=== PATIENT | male | born 1950 | race Caucasian/White ===

== ENCOUNTER 2022-06-14 08:40 | Outpatient (CLI) | payer MEDICARE, SELFPAY ==
--- NOTE | ~2022-06-14 | MR_ITS ---
EXAMINATION: MR shoulder RT wo con DATE: 06/14/2022 09:26 INDICATION: Right shoulder pain. TECHNIQUE: Magnetic resonance imaging (MRI) of the right shoulder was performed without intravenous c ontrast. Sequences included axial PD-weighted FS FSE, coronal oblique PD-weighted FS FSE and T2-weigh elfego FS FSE, and sagittal oblique T2-weighted FS FSE and T1-weighted FSE. COMPARISON: Right shoulder radiographs 05/31/2022 FINDINGS: Coracoacromial arch: The acromion undersurface is curved in morphology (type II). There is severe acromioclavicular joint osteoarthritis. There is moderate subacromial/subdeltoid bursitis. Rotator cuff: There is moderate supraspinatus and infraspinatus tendinopathy. Teres minor tendon is normal. There i s mild subscapularis tendinopathy. No tear. There is no asymmetric fatty atrophy of the rotator cuff muscle bellies. Biceps tendon and glenoid labrum: Biceps tendon is in bicipital groove. Intra-articular biceps tendon is normal. There is a tear of the anterior-inferior glenoid. Fluid: There is a small glenohumeral joint effusion. Bones/cartilage: There is cartilage surface irregularity of glenoid and humeral head. IMPRESSION: 1. Moderate rotator cuff tendinopathy. No tear. 2. Mild glenohumeral joint chondrosis. 3. Small glenohumeral joint effusion. 4. Severe acromioclavicular joint osteoarthritis. 5. Moderate subacromial/subdeltoid bursitis. Reviewed, dictated and finalized at location A.
== END 2022-06-14 08:41 | disposition home or self-care (01) ==
PROVIDERS: PCP Internal Medicine; Visit Provider Physician Assistant Surgical
DX: M25.411 Effusion, right shoulder (principal); M19.011 Primary osteoarthritis, right shoulder; M75.51 Bursitis of right shoulder
CPT/HCPCS: 73221

== ENCOUNTER 2022-09-30 11:01 | Outpatient (CLI) | payer MEDICARE, SELFPAY ==
--- NOTE | ~2022-09-30 | US_ITS ---
EXAMINATION: US venous doppler [facility] DATE: 09/30/2022 12:10 INDICATION: Left lower limb pain and swelling TECHNIQUE: Marshall scale images without and with compression and Doppler images of the left lower extrem ity veins were obtained. COMPARISON: None FINDINGS: The left common femoral vein, profunda femoral vein, femoral vein, popliteal vein, peroneal trunk, posterior tibial veins, and greater saphenous vein are patent. IMPRESSION: 1. Patent left lower extremity veins. No evidence of deep venous thrombosis. Reviewed, dictated and finalized at location L. AURANT BARTENDER
== END 2022-09-30 11:02 | disposition home or self-care (01) ==
PROVIDERS: PCP Internal Medicine; Visit Provider Nurse Practitioner
DX: M79.662 Pain in left lower leg (principal); M79.89 Other specified soft tissue disorders
CPT/HCPCS: 93971

== ENCOUNTER 2023-09-14 12:16 | Emergency (ER) | payer MEDICARE, SELFPAY ==
[2023-09-14 12:21] VITALS: BP 137/84; PULSE 83; RESP 16; TEMP 36.3; O2SAT 95
--- NOTE | 2023-09-14 12:28 | ED.URI ---
HPI - URI/Sore Throat General Chief Complaint: Upper Respiratory Infection Stated Complaint: SORE THROAT/COUGH/FEVER Source: patient and RN notes reviewed Mode of arrival: ambulatory Limitations: no limitations History of Present Illness HPI Narrative: 73 y/o male presented for c/o post nasal drainage, raw throat, cough. Temp up to 101 yesterday. Onset 3 days. Endorses known exposure to influenza. Taking theraflu for symptoms. Denies cp, palpitations, sob, wheezing, n/v/d. MD elicited complaint: cough Related Data Home Medications Medication Instructions Recorded Confirmed No Home Medications 09/14/23 09/14/23 Allergies Allergy/AdvReac Type Severity Reaction Status Date / Time No Known Allergies Allergy Verified 09/14/23 12:29 Review of Systems Review of Systems: CONSTITUTIONAL: Endorses malaise, chills, sweats, fever EYES: Denies visual changes, redness, or discharge ENT: Reports rhinorrhea, congestion, sore throat CARDIOVASCULAR: Denies chest pain, palpitations, edema RESPIRATORY: Reports cough, post nasal drainage. Denies dyspnea GASTROINTESTINAL: Denies abdominal pain, nausea, vomiting, diarrhea SKIN: Denies rash or itching MUSCULOSKELETAL: Endorses myalgia NEUROLOGIC: Endorses headache PMFSH Past Medical History Medical History Contracture, right shoulder History of stress test 3-4 years ago Seasonal allergies Surgical History Surgical History History of dental surgery 2-3 teeth removed Family History Family History Father Acute myocardial infarction Mother Arthritis Social History Social History Smoking status: Never smoker Alcohol intake: current Drinks per week: 2 Alcohol use details: wine, beer Substance use: never Lack of Transportation: No Lack of Food: Never True Current Housing: I Have Housing Concerned About Future Housing: No Difficulty Paying Gas/Electric Bills: No Difficulty Paying for Meds: No Currently Unemployed: No Education: Master's Degree or Higher Difficulty w/ Childcare or Family Care: No Living arrangements: with family Occupation/Education: retired Agree to blood products: Yes Exam Narrative: GENERAL: mildly Ill-appearing, nontoxic EYES: PERRLA, conjunctivae clear ENT: Mucous membranes moist. TMs pearly mcdonnell with dull light reflex bilaterally; no tragal tenderness. Oropharynx not erythematous without lesions or exudate, no drooling, no hoarseness, no trismus, uvula midline. No tripod positioning, muffled voice, soft palate or pharyngeal wall bulging NECK: Supple. No lymphadenopathy CHEST: Clear to auscultation, breath sounds equal. No wheezing, rhonchi, rales, or stridor. No respiratory distress, speaks in full sentences. HEART: Regular rate and rhythm. No murmur heard. SKIN: Warm, dry, no rash. NEURO: Alert and oriented x3. PSYCH: Normal mood and affect Course Course Emergency Course: Patient is aware of diagnosis, understands and agrees to treatment plan. Anticipatory guidance given. Patient agrees to follow-up as directed and is aware of reasons to seek care at the emergency department. Portions of this record may have been created with voice recognition software Level of Care: Express Care Visit Vital Signs Vital signs: Vital Signs Temperature 97.4 F L 09/14/23 12:21 Pulse Rate 83 09/14/23 12:21 Respiratory Rate 16 09/14/23 12:21 Blood Pressure 137/84 09/14/23 12:21 Pulse Oximetry 95 09/14/23 12:21 Temperature 97.4 F L 09/14/23 12:21 Pulse Rate 83 09/14/23 12:21 Respiratory Rate 16 09/14/23 12:21 Blood Pressure 137/84 09/14/23 12:21 Pulse Oximetry 95 09/14/23 12:21 Oxygen Delivery Room Air 09/14/23 12:23 reviewed MDM - MAYELIN/Marguerite Grullon
== END 2023-09-14 12:46 | disposition home or self-care (01) ==
PROVIDERS: Emergency Provider Nurse Practitioner Family; PCP Nurse Practitioner
DX: B34.9 Viral infection, unspecified (principal); Z20.822 Contact with and (suspected) exposure to COVID-19
CPT/HCPCS: 87426; 87804; 99213; C9803; G0463

== ENCOUNTER 2023-09-20 02:40 | Emergency (ER) | payer MEDICARE, SELFPAY ==
[2023-09-20] VITALS (9 sets, daily range): BP systolic 112–129; BP diastolic 63–74; PULSE 67–85; RESP 15–19; TEMP 36.6–36.8; O2SAT 93–98
--- NOTE | ~2023-09-20 | XR_ITS ---
Portable chest x-ray Comparison: None Clinical History: Syncope Findings: Lungs are clear, without focal consolidation or pleural effusion. Cardiomediastinal silho uette is unremarkable. Bones and soft tissues are unremarkable. Impression: Normal chest. Reviewed, dictated and finalized at location M. RING ASSISTANT Impression: Normal chest.
--- NOTE | 2023-09-20 02:45 | ECG_ITS ---
Measurements Intervals [place] Rate: 76 P: 3 AL: 191 QRS: -16 QRSD: 93 T: 28 QT: 363 QTc: 409 Interpretive Statements SINUS RHYTHM DELAYED PRECORDIAL R/S TRANSITION LOW QRS VOLTAGE IN PRECORDIAL LEADS INFERIOR INFARCT, AGE INDETERMINATE BASELINE ARTIFACT- V2 ABNORMAL ECG NO PREVIOUS ECG AVAILABLE FOR COMPARISON Electronically Signed On 09-20-2023 10:25:29 ORE BRIDGE OPERATOR by Orlin Najera D.O.
[2023-09-20 03:24] LABS: Basophils Percent Auto 0.2 % (0.2-1.2); Eosinophils Absolute Auto 0.1 K/mm3 (0-0.3); Eosinophils Percent Auto 0.4 % (0-4.4); Hematocrit 42.7 % (42.0-52.0); Immature Granulocyte Absolute 0.04 K/mm3 (0.00-0.031); Immature Granulocyte Percent A 0.3 % (0-0.5); Lymphocytes Absolute Auto 4.48 K/mm3 (0.9-3.2); Mean Corpuscular HGB Conc 32.8 g/dl (32-36); Mean Corpuscular Hemoglobin 31.8 pg (26-34); Mean Platelet Volume 11.2 fl (7.4-10.4); Monocytes Absolute Auto 0.5 K/mm3 (0.1-0.6); Monocytes Percent Auto 3.5 % (2.6-8.5); Neutrophils Absolute Auto 8.9 K/mm3 (1.3-6.7); Neutrophils Percent Auto 63.6 % (45.5-73.1); Platelet Count Result 194 k/mm3 (150-375); Red Cell Distribution Width 11.9 % (11.5-14.5)
[2023-09-20 03:41] LABS: Alanine Aminotransferase 21 U/L (6-50); Albumin Level 3.9 g/dL (3.5-5.1); Alkaline Phosphatase 52 U/L (38-126); Anion Gap 7 mmol/L (8-16); Aspartate Amino Transferase 24 U/L (17-59); Bilirubin,Total 0.8 mg/dL (0.2-1.3); Blood Urea Nitrogen 18 mg/dL (9-20); Calcium 8.6 mg/dL (8.4-10.2); Carbon Dioxide 28 mmol/L (22-30); Chloride 103 mmol/L (98-107); Estimated CRCL calculation 50 ml/min; Estimated Glomerular Filt Rate > 60; Glucose 121 mg/dL (65-110); Potassium 3.4 mmol/L (3.4-5.0); Sodium 138 mmol/L (137-145)
[2023-09-20 04:02] LABS: Influenza A QL RT-PCR Positive (Negative); Influenza B QL RT-PCR Negative (Negative); RSV RNA, RT-PCR Negative (Negative); SARS-CoV-2 RNA PCR Negative (Negative)
[2023-09-20] MEDS: SODIUM CHLORIDE 0.9% IV 1,000 ML 999 ML IV CONT (04:10)
--- NOTE | 2023-09-20 05:31 | ED.GENADULT ---
HPI - General Adult General Chief complaint: Syncope Stated complaint: chest pressure, syncope Time Seen by Provider: 09/20/23 03:30 History of Present Illness HPI narrative: This 73-year-old male presenting ED with chief complaint of syncope. Patient is been having cough and feeling unwell for the last 4-5 days. Today he with laying in bed for about an hour when he got up to go take some tylenol. After a to couple steps he started to feel like had a lightheaded and then slid to the floor. He said on the for minute and then felt better and was able to get up and can the hospital the checked out. At this time he is currently asymptomatic and feels well. Patient does note that he had a flu exposure from his son with holidays. Related Data Home Medications Medication Instructions Recorded Confirmed No Home Medications 09/14/23 09/14/23 Allergies Allergy/AdvReac Type Severity Reaction Status Date / Time No Known Allergies Allergy Verified 09/20/23 02:48 [facility] Past Medical History Medical History Contracture, right shoulder History of stress test 3-4 years ago Seasonal allergies Surgical History Surgical History History of dental surgery 2-3 teeth removed Family History Family History Father Acute myocardial infarction Mother Arthritis Social History Social History Smoking status: Never smoker Alcohol intake: current Drinks per week: 2 Alcohol use details: wine, beer Substance use: never Lack of Transportation: No Lack of Food: Never True Current Housing: I Have Housing Concerned About Future Housing: No Difficulty Paying Gas/Electric Bills: No Difficulty Paying for Meds: No Currently Unemployed: No Education: Master's Degree or Higher Difficulty w/ Childcare or Family Care: No Living arrangements: with family Occupation/Education: retired Agree to blood products: Yes Exam Narrative: APPEARANCE: No apparent distress. Head: atraumatic. EYES: EOMI, NOSE: Atraumatic NECK: Trachea midline RESPIRATORY: No increased rate of breathing clear to auscultation CARDIOVASCULAR: RRR, no peripheral edema ABDOMINAL: Non-distended MUSCULOSKELETAl: No obvious deformities NEURO: Alert. Moving 4/4 extremities SKIN:: Warm, dry. Normal color PSYCHIATRIC: Normal affect Course Vital Signs Vital signs: Vital Signs Temperature 98.3 F 09/20/23 02:38 Pulse Rate 78 09/20/23 02:38 Respiratory Rate 15 09/20/23 02:38 Pulse Oximetry 98 09/20/23 02:38 Oxygen Delivery Room Air 09/20/23 02:38 Temperature 98.3 F 09/20/23 02:38 Pulse Rate 70 09/20/23 06:44 Respiratory Rate 15 09/20/23 06:44 Blood Pressure 121/71 09/20/23 06:44 Pulse Oximetry 98 09/20/23 06:44 Oxygen Delivery Room Air 09/20/23 02:46 Medical Decision Making MDM Narrative Medical decision making narrative: -Course: 73-year-old male presenting with a presyncopal event. Patient's workup was positive for influenza A. Patient was fluid rehydrated and monitor for several hours with no recurrence of symptoms. Is able to ambulate without difficulty and is feeling well. We discussed Tamiflu but he is outside. Patient be discharged with return precautions. -DDX includes but is not limited to: Dehydration, orthostatic syncope, vasovagal syncope, viral illness, cardiac syncope -Hx from independent Sources: @ bedside -Independent interpretation of studies: White count 14. Metabolic panel normal. Flu A positive Independent EKG interpretation: Rhythm [sinus], Rate [76], [place] -[normal], [place] -[normal], QRS [narrow], QTC [normal], T waves -[negative for concerning inversions], ST Segments - [Negative for concerning elevations] Final interpretations: [Normal
--- NOTE | 2023-09-20 06:40 | PC.NURSE ---
Pt ambulatory to restroom w no complaints. Pt denies feeling dizzy or lightheaded.
--- NOTE | 2023-09-20 07:11 | PC.NURSE ---
Report given to SHABBIR Zaldivar at this time.
== END 2023-09-20 07:25 | disposition home or self-care (01) ==
PROVIDERS: Emergency Provider Emergency Medicine; PCP Nurse Practitioner
DX: J10.1 Influenza due to other identified influenza virus with other respiratory manifestations (principal); R55 Syncope and collapse; Z20.822 Contact with and (suspected) exposure to COVID-19
CPT/HCPCS: 36415; 71045; 80053; 85025; 87637; 93005; 96360; 99284; J7030

== ENCOUNTER 2025-01-30 00:23 | Day surgery (SDC) | payer MEDICARE, SELFPAY ==
[2025-01-17 12:10] VITALS: BMI 29.5
--- OUTSIDE RECORDS SUMMARY | 2025-01-30 00:26 | XMS_ITS | Clinical Summary ---
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 Gender Identity Not on file Sexual Orientation Not on file Plan of Treatment Health Maintenance Due Date Last Done Comments Hepatitis C 1966 DTaP, Tdap and Td Vaccines (1 - Tdap) 1967 Pneumococcal Vaccine: 50+ Years (1 of 1 - PCV) 1998 Zoster Vaccines (1 of 2) 1998 Annual Medicare Wellness Visit 2013 RSV Immunization or 60+ Years (1 - 1-dose 75+ series) 2023 COVID-19 Vaccine ( season) 2025 07/21/2024, 06/22/2023, 02/02/2023, Additional history exists Meningococcal B Vaccine Aged Out No l onger eligible based on patient's age to complete this topic Meningococcal Vaccine Aged Out No mehnaz tianna eligible based on patient's age to complete this topic RSV Immunizations Under 20 Months Aged Out No longer eligible based on patient's age to complete this topic Insurance MEDICARE Care Teams Electric Tripper Machine Operator Relationship Specialty Start Date End Date Reynold Nettles DO [address] [place] [address] PCP - General 10/08/24
[2025-01-30 10:12] VITALS: BP 114/72; PULSE 72; RESP 16; TEMP 36.2; O2SAT 100
[2025-01-30] MEDS: LACTATED RINGERS 1,000 ML 150 ML IV CONT (10:24)
--- NOTE | 2025-01-30 10:45 | P.PNAN_ITS ---
Anes - Initial Pre Proc Eval Procedure: Operation Date: 01/30/25 11:30 Proposed Procedures p Colonoscopy - Teddy Jara MD Date/Time: 01/30/25 10:45 Surgeon: Teddy Jara MD Pre Op Diagnosis: Other fecal abnormalities Patient Data Age: 74 Gender: M Height: 1.73 m Weight: 85.8 kg Last Vital Signs Temp 36.2 C L 01/30/25 10:12 Pulse 72 01/30/25 10:12 Resp 16 01/30/25 10:12 BP 114/72 01/30/25 10:12 Pulse Ox 100 01/30/25 10:12 O2 Del Method Room Air 01/30/25 10:12 Allergies Allergy/AdvReac Type Severity Reaction Status Date / Time No Known Allergies Allergy Verified 01/30/25 10:11 Home Medications ?Medication ?Instructions ?Recorded ?Confirmed ?Type aspirin 81 mg tablet,delayed 81 mg PO DAILY #90 tabs 10/10/24 01/30/25 Rx release atorvastatin 10 mg tablet (Lipitor) 10 mg PO QHS #90 tabs 10/10/24 01/30/25 Rx Patient hx anesthesia problems: none Family hx anesthesia problems: none Results Review: All pre-operative results and documents have been reviewed as part of the pre- operative evaluation. [facility] Past Medical History Medical History Contracture, right shoulder History of stress test 3-4 years ago Seasonal allergies Surgical History Surgical History History of dental surgery 2-3 teeth removed Family History Family History Father Acute myocardial infarction Mother Arthritis Social History Social History Smoking status: Never smoker Alcohol intake: never Drinks per week: 2 Alcohol use details: wine, beer Substance use: never Substance use type: does not use Lack of Transportation: No Lack of Food: Never True Current Housing: I Have Housing Concerned About Future Housing: No Difficulty Paying Gas/Electric Bills: No Difficulty Paying for Meds: No Currently Unemployed: No Education: Master's Degree or Higher Difficulty w/ Childcare or Family Care: No Living arrangements: with family Occupation/Education: retired Spiritual care concerns: No Agree to blood products: Yes Anes - Eval Final PreProcedure Day of Procedure 01/30/25 10:45 Patient weight: overweight Heart: regular rate and rhythm Lungs: clear to auscultation Airway: Mallampati scale class II Neurological: alert and oriented Last oral intake: >/= 8 hours ASA classification: II Emergent: no Anesthetic plan: proceed Anesthesia type and monitoring: general GIVS and standard monitoring Results Review: All pre-operative results and documents have been reviewed as part of the pre- operative evaluation. Informed Consent: The patient's anesthetic plan and its attendant risks and benefits were discussed with the patient/family/POA. Questions were solicited and answers provided to the satisfaction of the patient/family/POA.
--- NOTE | 2025-01-30 11:02 | PM.IMHP ---
H&P: HPI History of Present Illness Date/Time: 01/30/25 11:02 Chief Complaint: Screening colonoscopy Narrative: This is the patient's 2nd colonoscopy. There are no GI symptoms and there is no family history of colorectal cancer. Review of Systems Review of Systems: All systems reviewed & are unremarkable except as noted in HPI and below PMFSH Past Medical History Medical History Contracture, right shoulder History of stress test 3-4 years ago Seasonal allergies Surgical History Surgical History History of dental surgery 2-3 teeth removed Family History Family History Father Acute myocardial infarction Mother Arthritis Social History Social History Smoking status: Never smoker Alcohol intake: never Drinks per week: 2 Alcohol use details: wine, beer Substance use: never Substance use type: does not use Lack of Transportation: No Lack of Food: Never True Current Housing: I Have Housing Concerned About Future Housing: No Difficulty Paying Gas/Electric Bills: No Difficulty Paying for Meds: No Currently Unemployed: No Education: Master's Degree or Higher Difficulty w/ Childcare or Family Care: No Living arrangements: with family Occupation/Education: retired Spiritual care concerns: No Agree to blood products: Yes Meds Home Medications and Allergies Home Medications ?Medication ?Instructions ?Recorded ?Confirmed ?Type aspirin 81 mg tablet,delayed 81 mg PO DAILY #90 tabs 10/10/24 01/30/25 Rx release atorvastatin 10 mg tablet (Lipitor) 10 mg PO QHS #90 tabs 10/10/24 01/30/25 Rx Allergies Allergy/AdvReac Type Severity Reaction Status Date / Time No Known Allergies Allergy Verified 01/30/25 10:11 Vital Signs Vital Signs - 24 hr 01/30/25 10:12 Temperature 97.1 F L Pulse Rate 72 Respiratory Rate 16 Blood Pressure 114/72 Pulse Oximetry 100 Oxygen Delivery Room Air Exam Const: General: cooperative and healthy appearing Resp: Effort & Inspection: normal respiratory effort and able to speak in complete sentences Auscultation: clear to auscultation bilaterally Cardio: Rate: regular rate Rhythm: regular rhythm GI: Inspection: normal to inspection GI Palp: No No hepatosplenomegaly present Auscultation: normal bowel sounds Rectal Exam: deferred Skin: General skin exam: normal color Psych: Appearance: grossly normal Mental Status: mental status grossly normal Assessment and Plan Assessment and plan (1) Positive colorectal cancer screening using Cologuard test: Code(s): R19.5 - Other fecal abnormalities Status: Acute Assessment and Plan: The patient is deemed a good candidate for the procedure. Consent signed. Will proceed.
[2025-01-30 11:26] VITALS: BP 125/71; PULSE 60; RESP 16; O2SAT 99
[2025-01-30 11:36] VITALS: BP 116/72; PULSE 58; RESP 16; O2SAT 100
[2025-01-30 11:46] VITALS: BP 128/81; PULSE 62; RESP 24; O2SAT 100
== END 2025-01-30 11:53 | disposition home or self-care (01) ==
PROVIDERS: PCP Nurse Practitioner; Referring Provider Nurse Practitioner; Visit Provider Internal Medicine Gastroenterology
PROC: 0DJD8ZZ Inspection of Lower Intestinal Tract, Via Natural or Artificial Opening Endoscopic (ICD-10-PCS; CPT 45378; principal; 2025-01-30 11:30)
DX: R19.5 Other fecal abnormalities (principal); K64.8 Other hemorrhoids
CPT/HCPCS: 45378; J2704; J7120

== ENCOUNTER 2025-03-01 12:54 | Emergency (ER) | payer MEDICARE, SELFPAY ==
--- NOTE | ~2025-03-01 | XR_ITS ---
XR abdomen/kub 1V 03/01/2025 13:57 Indication: Abdomen pain. History of kidney stones. Procedure: KUB Comparison: No prior studies for comparison. Findings: There are bilateral renal stones including a staghorn calculus of the left kidney. There is a larger 3 cm calcification overlying the right sacrum of uncertain origin. Bowel gas pattern nonobs tructive. There are pelvic phleboliths. Mild lumbar spondylosis. Impression: 1: Bilateral nephrolithiasis. Large right pelvic calcification overlying the sacrum. Recommend correl ation with CT to determine origin. Reviewed, dictated and finalized at location B. Impression: 1: Bilateral nephrolithiasis. Large right pelvic calcification overlying the sa faustino. Recommend correlation with CT to determine origin.
[2025-03-01 13:19] VITALS: BP 174/81; PULSE 56; RESP 20; TEMP 36.6; O2SAT 100
--- NOTE | 2025-03-01 13:23 | ED_ITS ---
HPI - Abdominal Pain General Chief Complaint: Abdominal Pain Stated Complaint: Abdominal Pain Time Seen by Provider: 03/01/25 12:55 Source: patient Mode of arrival: ambulatory Limitations: no limitations History of Present Illness HPI narrative: Patient is a 74-year-old male that presents with bilateral testicular pain with the suprapubic pain. Also reports urinary urgency that started today. Patient has history of kidney stones and does states the pain has waxed and waned. Reports pain increased while in clinic to a 6/10. Denies any gross blood in urine, fever, chills, low back pain, nausea, vomiting, diarrhea. Denies any testicular swelling, abnormal discharge for for or trauma. Related Data Allergies Allergy/AdvReac Type Severity Reaction Status Date / Time No Known Allergies Allergy Verified 03/01/25 15:06 Review of Systems Review of Systems: All systems reviewed & are unremarkable except as noted in HPI and below Constitutional: Constitutional: Denies body ache(s), Denies chills, Denies fatigue, Denies fever(s), Denies headache(s), Denies malaise and Denies weakness Eyes: Eyes: Denies blurry vision, Denies irritation and Denies loss of vision ENT: Denies otalgia, Denies headache(s), Denies nasal discharge, Denies sinus pain and Denies sore throat Cardiovascular: Cardiovascular: Denies chest pain, Denies irregular heart rhythm and Denies dyspnea Respiratory: Respiratory: Denies dyspnea Gastrointestinal: Gastrointestinal: Denies abdominal pain, Denies melena, Denies hematochezia, Denies diarrhea, Denies nausea and Denies vomiting Genitourinary: Genitourinary: Reports flank pain, Reports testicular pain and Reports urinary frequency Musculoskeletal: Musculoskeletal: Denies back pain, Denies myalgias and Denies arthralgias Integumentary/Breasts: Skin/Breast: Denies pruritus and Denies rash Neurologic: Denies headache(s), Denies loss of vision and Denies weakness Psychiatric: Psychiatric: Reports no additional psychiatric complaints Endocrine: Endocrine: Denies fatigue PMFSH Past Medical History Medical History Contracture, right shoulder History of stress test 3-4 years ago Seasonal allergies Surgical History Surgical History History of dental surgery 2-3 teeth removed Family History Family History Father Acute myocardial infarction Mother Arthritis Social History Social History Smoking status: Never smoker Alcohol intake: never Drinks per week: 2 Alcohol use details: wine, beer Substance use: never Substance use type: does not use Lack of Transportation: No Lack of Food: Never True Current Housing: I Have Housing Concerned About Future Housing: No Difficulty Paying Gas/Electric Bills: No Difficulty Paying for Meds: No Currently Unemployed: No Education: Master's Degree or Higher Difficulty w/ Childcare or Family Care: No Living arrangements: with family Occupation/Education: retired Spiritual care concerns: No Agree to blood products: Yes Comments At time of signature, agree with nursing past medical, surgical, social and family history. There is no relevant family history pertinent to the presenting complaint. Exam Const: General: cooperative, healthy appearing, comfortable, no acute distress and well nourished Nutritional Appearance: well nourished Orientation/consciousness: patient oriented x3 Limitations: no limitations HENMT: Head: normal to inspection, normocephalic and atraumatic Ears: hearing grossly normal bilaterally and external ears normal Face/Nose/Sinus: Normal external nose present, normal facial exam and face symmetric Face and sinus: normal facial exam and face symmetric Mouth: Yes lip normal Eyes: General: appearance normal, both eyes and all related structures Alignment and Position: alignment normal and position normal Periorbital: periorbital findings normal Eyelids: eyelids normal Pupils: Equal, round and reactive pupils present EOM: EOMs intact bilaterally Neck: Neck: normal visual inspection, full ROM and supple Chest: Chest palpation & inspection: normal inspection of the chest Resp: Effort & Inspection: normal respiratory effort and able to speak in complete sentences Auscultation: clear to auscultation bilaterally Cardio: Rate: regular rate Rhythm: regular rhythm Heart sounds: S1 normal heart sound present and S2 normal heart sound present GI: Inspection: normal to inspection GI Palp: Yes Soft to palpation, No Tenderness to palpation present (GI) and No Guarding due to palpation present (GI) Skin: General skin exam: normal color and no rashes or lesions noted Neuro: General: patient oriented x3 and moves all extremities Cranial nerves: Yes Equal, round and reactive pupils present Speech: normal speech Gait exam (Neuro): Normal gait present Extrem: General: normal to inspection, full ROM and no edema Psych: Appearance: grossly normal and well kempt Mental Status: mental status grossly normal Speech and movement: Normal speech and movement present Affect: normal affect Attitude: cooperative Thought process: Normal thought process present Course Course Emergency Course: Patient being transferred to [facility] for further workup and evaluation. KUB and UA consistent with potential infected kidney stones. Also has a large mass noted with recommendation for CT Portions of this record may have been created with voice recognition software Level of Care: Express Care Visit Vital Signs Vital signs: Vital Signs Temperature 36.6 C 03/01/25 13:19 Pulse Rate 56 L 03/01/25 13:19 Respiratory Rate 20 03/01/25 13:19 Blood Pressure 174/81 H 03/01/25 13:19 Pulse Oximetry 100 03/01/25 13:19 Oxygen Delivery Room Air 03/01/25 13:19 Temperature 36.6 C 03/01/25 13:19 Pulse Rate 56 L 03/01/25 13:19 Respiratory Rate 20 03/01/25 13:19 Blood Pressure 174/81 H 03/01/25 13:19 Pulse Oximetry 100 03/01/25 13:19 Oxygen Delivery Room Air 03/01/25 13:19 Reviewed Transfer Transfered to: [place] Transportation: Other (Private auto) Transfer rationale: Patient being transferred to [facility] for further workup and evaluation. KUB and UA consistent with potential infected kidney stones. Also has a large mass noted with recommendation for CT Accepting physician: Sherif FREIRE MDM - Abdominal Pain MDM Narrative Medical decision making narrative: Patient being transferred to [facility] for further workup and evaluation. KUB and UA consistent with potential infected kidney stones. Also has a large mass noted with recommendation for CT Differential Diagnosis Differential diagnosis: Likely abdominal pain, calculus of kidney, constipation and small bowel obstruction Medical Records Attestation: I reviewed the patient's medical records. Lab Data Labs: Lab Results 03/01/25 Range/Units 13:32 POC Urine Color Evie POC Urine Clarity Cloudy POC Urine pH 5.5 POC Ur Specif [place] 1.025 POC Urine Protein 2+ (Negative) POC Ur Glucose (UA) Trace (Negative) POC Urine Ketones Negative (Negative) POC Urine Blood 3+ (Negative) POC Urine Nitrite Negative (Negative) POC Urine Bilirubin 1+ (Negative) POC Urine Urobilinogen 0.2 POC U Leukocyte Esteras 1+ (Negative) Imaging Data Radiologist's impression: ITS Impressions Abdomen X-Ray 03/01/25 14:01 Impression: 1: Bilateral nephrolithiasis. Large right pelvic calcification overlying the sacrum. Recommend correlation with CT to determine origin. Discharge Plan Discharge Clinical Impression: Calculus of kidney Patient Disposition: Acute Care Hospital Condition: Stable Patient Language: French Prescriptions: No Action atorvastatin [Lipitor] 10 mg tablet 10 mg PO QHS Qty: 90 3RF aspirin 81 mg tablet,delayed release (DR/EC) 81 mg PO DAILY Qty: 90 3RF Follow-up/Referrals: Nataly Page LABORATORY INSPECTOR [Primary Care Provider] - Time of Disposition: 15:25
[2025-03-01] MEDS: KETOROLAC 30 MG/ML VIAL (*BKC) IM (13:44)
[2025-03-01 13:53] LABS: EDUAAPPEAR Cloudy; EDUABILI 1+ (Negative); EDUABLOOD 3+ (Negative); EDUACOLOR1 Amber; EDUAGLUCOSE Trace (Negative); EDUAKETONE Negative (Negative); EDUALEUKO 1+ (Negative); EDUANITRATE Negative (Negative); EDUAPH 5.5; EDUAPROTEIN 2+ (Negative); EDUASPGRAVITY 1.025; EDUAUROBILI 0.2
== END 2025-03-01 14:24 | disposition short-term general hospital (02) ==
PROVIDERS: Emergency Provider Nurse Practitioner Family; PCP Nurse Practitioner
DX: N20.0 Calculus of kidney (principal)
CPT/HCPCS: 74018; 81003; 87086; 96372; 99213; G0463; J1885

== ENCOUNTER 2025-03-01 14:57 | Observation (INO) | payer MEDICARE, SELFPAY ==
[2025-03-01] VITALS (11 sets, daily range): BP systolic 129–151; BP diastolic 69–90; PULSE 60–72; RESP 14–24; TEMP 36–36.6; O2SAT 97–100; BMI 29.7
--- NOTE | ~2025-03-01 | XR_ITS ---
XR retrograde pyelo w/stent BI Ordering provider: Venkatesh Ramirez MD History: . RETROGRADE W/STENT . Comparison : None. FINDINGS/impression: Bilateral retrograde with stents. Bilateral hydronephrotic changes. Fluoroscopy time is 16.1 seconds. Radiation was 5.53 mGy. Reviewed, dictated and finalized at location A.
--- NOTE | ~2025-03-01 | CT_ITS ---
CT abdomen pelvis w con Ordering provider: Robinson Gorman History: 74 years Male with . Bilateral nephrolithiasis, pelvic calcification . Comparison: None. Technique: CT abdomen and pelvis with IV and without oral contrast. Automated exposure control and it erative reconstruction technique were employed. The dose-length product was 540.92 mGy-cm. 100 mL Omn ipaque 350 was given IV. Findings: VISUALIZED LOWER CHEST: Normal. UPPER ABDOMINAL ORGANS: Liver: Normal. Gallbladder: Normal. Spleen: Normal. Stomach/duodenum: Normal. Pancreas: Normal. Adrenals: Normal. Kidneys: 2 Kidney stones are seen in the right mid pole. Right hydronephrotic changes seen with a stone in the right lower ureter measuring 9 mm. Right hydrou reter is also noted. Slightly smaller left kidney with large stones are seen in the left kidney midpole measuring 1.2 and 1.2 cm. Left hydronephrotic changes with a stone in the pelviureteric junction is seen measuring 2.7 cm. No left ureteric stones. PELVIC ORGANS: The bladder is underfilled with thickened wall. Evaluation for cystitis advised. BOWEL AND MESENTERY: Colon: No evidence of diverticulitis. Normal appendix. Small Bowel: Normal. No obstruction. Peritoneum/mesentery: No free air or free fluid. No mesenteric lymphadenopathy. RETROPERITONEUM: Mild atheromatous disease of the abdominal aorta. No retroperitoneal lymphadenopat hy. MUSCULOSKELETAL: Superficial soft tissues: Bilateral fat containing inguinal hernias. Otherwise, The superficial soft tissues are normal. Bones: Age appropriate degenerative changes of the spine. Bilateral sacroiliitis. Sclerotic lesion in the right iliac bone posteriorly. Follow-up advised. IMPRESSION: 1. Bilateral kidney stones with bilateral hydronephrotic changes. 2. Stone in the right lower ureter with hydroureter. 3. 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 4. Sclerotic area in the right iliac bone. Follow-up advised. Reviewed, dictated and finalized at location A.
--- OUTSIDE RECORDS SUMMARY | 2025-03-01 15:00 | XMS_ITS | Clinical Summary ---
Author Organization [address] Address [address] [place] [id number] Care Team Providers Care Children'S Ministries Director Name Role Phone Nataly Page NP Primary Care Provider Allergies No known active allergies Medications aspirin 81 mg enteric coated tablet Take 1 tablet (81 mg total) by mouth daily Active atorvastatin (LIPITOR) 10 mg tablet Take 1 tablet (10 mg total) by mouth daily Active ofloxacin (OCUFLOX) 0.3 % ophthalmic solutionIndicat ions:Corneal abrasion, left, initial encounter instill 2 drops in left eye every 4 hours for 2 days, then 2 drops 4 times daily on days 3 through 7 5 mL 12/30/2024 Active Active Problems Problem Noted Date Diagnosed Date Coronary artery disease invo lving [place] coronary artery of [place] heart without angina pectoris 11/19/2024 Encounters Date Type Department Care Team Description 12/30/2024 9:30 AM CDT Office Visit [facility] Medical Group [facility] Care at [address] [address] Niya Smith NP Corneal abrasion, left, initial encounter (Primary Dx) from Last 3 Months Medical History Medical History Date Comments Hyperlipidemia Family History Medical History Relation Name Comments Heart attack Brother Heart attack Father Relation Name Status Comments Brother Alive Father Mother Social History Tobacco Use Types Packs/Day Years Used Date Smoking Tobacco: Never Smokeless Tobacco: Never Tobacco Cessation:Counseling Given: Not Answered Sex and Gender Information Value Date Recorded Sex Assigned at Not on file Legal Sex Male 9:53 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 Gender Identity Not on file Sexual Orientation Not on file Obstetrics History Last Filed Vital Signs Vital Sign Reading Time Taken Comments Blood Pressure 139/75 12/30/2024 9:34 AM CDT Pulse 68 12/30/2024 9:34 AM CDT Temperature 36.7 C (98 F) 12/30/2024 9:34 AM CDT Respiratory Rate 18 12/30/2024 9:34 AM CDT Oxygen Saturation 99% 12/30/2024 9:34 AM CDT Inhaled Oxygen Concentration - - Weight 87.1 kg (192 lb) 12/30/2024 9:34 AM CDT Height 172.7 cm (5' 8) 11/19/2024 9:18 AM SENIOR UNDERWRITER Body Mass Index 29.19 11/19/2024 9:18 AM SENIOR UNDERWRITER Plan of Treatment Health Maintenance Due Date Last Done Comments Depression Screening 1948 Fall Risk Assessment 1950 Hepatitis C Screening 1950 DTaP/Tdap/Td Vaccine (1 - Tdap) 1959 Hepatitis B Screening 1966 Pneumococcal vaccine 65+ (1 of 1 - PCV) 1998 Zoster Vaccine (1 of 2) 1998 Well Visit 65+ 2013 Covid-19 Vaccine (2023-2 5 season) 2025 07/21/2024, 06/22/2023, 02/02/2023, Additional history exists Influenza Vaccine Completed 07/21/2024, , 06/23/2022, Additional history exists Insurance MEDICARE [facility] Address: [facility] [id number] [place] [phone] [facility] Care Teams Children'S Ministries Director Relationship Specialty Start Date End Date Nataly Page NP [facility] [facility] [place] [address] PCP - General Nurse Practitioner 10/11/24
--- OUTSIDE RECORDS SUMMARY | 2025-03-01 15:00 | XMS_ITS | Referral Summary ---
Author Organization [address] [address] Care Team Providers Care Job Putter Up And Ticket Preparer Name Role Phone Nataly Page NP Primary Care Provider [phone] Encounters Date Type Department Care Team Description 12/30/2024 9:30 AM CDT Office Visit [facility] Medical Group [facility] at [address] [phone] Niya Smith NP Corneal abrasion, left, initial encounter (Primary Dx) from Last 3 Months Allergies No known active allergies Medications aspirin [...] Diagnosed Date Coronary artery disease invo lving [place] coronary artery of [place] heart without angina pectoris 11/19/2024 Social History Tobacco Use Types Packs/Day Years Used Date Smoking Tobacco: Never Smokeless Tobacco: Never Tobacco Cessation:Counseling Given: Not Answered Sex and Gender Information Value Date Recorded Sex Assigned at Not on file Legal Sex Male 9:53 AM TOOL TROUBLE SHOOTER Gender Identity Not on file Sexual Orientation Not on file Last Filed Vital Signs Vital Sign Reading [...] 172.7 cm (5' 8) 11/19/2024 9:18 AM TOOL TROUBLE SHOOTER Body Mass Index 29.19 11/19/2024 9:18 AM TOOL TROUBLE SHOOTER Plan of Treatment Not on file Insurance MEDICARE [facility] Address: [facility] [address] [place] [address] [facility] Care Teams Job Putter Up And Ticket Preparer Relationship Specialty Start Date End Date Nataly Page NP [address] [facility] [place] [address] PCP - General Nurse Practitioner 10/11/24
--- OUTSIDE RECORDS SUMMARY | 2025-03-01 15:00 | XMS_ITS | Continuity of Care Document ---
Author Organization [facility] Address [address] [place] [address] Phone Care Team Providers Care Dealer Relationship Manager Name Role Phone Deyanira Nolen MD Unavailable Unavailable Procedures Procedure Date CARDIOVASCULAR STRESS TEST CARDIOVASCULAR STRESS TEST Advance Directives Directive Yes / No Effective Date File Name No Information Encounters Encounter Description Practice Location Reason(s) For Visit Diagnoses Date Provider Providers Copied on Encounter [facility], [address], [place], [place], [id number], tel:[phone] [address] [place] [address] No Information Callum Mcmillan. [address], [place], [address], [place]. tel: [phone] Referring Provider: Octavio Martinez, [address], [place], [address]. tel:[phone] Family History Family Member Type Diagnosis Age At Onset No Information Payers Payer name Insurance type Covered constitution party ID Khushi ferreira(s) [place] [id number] Social History Type Description Quantity Date Captured Comments Sex Female Smoking Status No Information Chief Complaint And Reason For Visit No Information Reason For Referral Reason For Referral No Information History Of Present Illness Encounter Date Complaint History Of Prese nt Illness No Information Functional Status Date Functional Assessmen t No Information Instructions Date Instruction Additional Infor mation No Information Assessments Type Assessment Date No Information Patient Care Teams Name Effective Dates (start - stop) Status Members No Information
[2025-03-01 15:31] LABS: Basophils Percent Auto 0.2 % (0.2-1.2); Eosinophils Percent Auto 0.1 % (0-4.4); Hematocrit 41.8 % (42.0-52.0); Hemoglobin 14.2 g/dL (14.0-18.0); Immature Granulocyte Absolute 0.07 K/mm3 (0.00-0.031); Immature Granulocyte Percent A 0.4 % (0-0.5); Lymphocytes Absolute Auto 2.69 K/mm3 (0.9-3.2); Mean Corpuscular Hemoglobin 32.8 pg (26-34); Mean Corpuscular Volume 96.5 fl (80-100); Mean Platelet Volume 10.4 fl (7.4-10.4); Monocytes Absolute Auto 0.7 K/mm3 (0.1-0.6); Monocytes Percent Auto 3.8 % (2.6-8.5); Neutrophils Absolute Auto 14.5 K/mm3 (1.3-6.7); Neutrophils Percent Auto 80.5 % (45.5-73.1); Platelet Count Result 265 k/mm3 (150-375); Red Blood Count 4.33 M/mm3 (4.6-6.20); Red Cell Distribution Width 12.4 % (11.5-14.5)
[2025-03-01 15:43] LABS: Partial Thromboplastin Time 21.8 Seconds (22.3-36.8)
[2025-03-01 15:45] LABS: Lactic Acid Reflex 0.9 mmol/L (0.7-2.0)
[2025-03-01 15:46] LABS: Alanine Aminotransferase 17 U/L (6-50); Albumin Level 4.7 g/dL (3.5-5.1); Alkaline Phosphatase 61 U/L (38-126); Anion Gap 11 mmol/L (4-12); Aspartate Amino Transferase 30 U/L (17-59); Bilirubin,Total 0.5 mg/dL (0.2-1.3); Blood Urea Nitrogen 19 mg/dL (9-20); Calcium 9.4 mg/dL (8.4-10.2); Carbon Dioxide 24 mmol/L (22-30); Chloride 106 mmol/L (98-107); Estimated CRCL calculation 41 ml/min; Estimated Glomerular Filt Rate 52; Glucose 138 mg/dL (65-110); Potassium 4.3 mmol/L (3.4-5.0); Sodium 141 mmol/L (137-145); Total Protein 7.7 g/dL (6.3-8.2)
[2025-03-01 15:51] LABS: Add Urine Microscopic? YES; Appearance Urine Cloudy (Clear); Bacteria Urine None Seen /hpf; Bilirubin Urine Negative (Negative); Blood Urine 3+ (Negative); Color Urine Dark Yellow (Yellow); Glucose Urine UA 1+ mg/dL (Negative); Ketones Urine Trace mg/dL (Negative); Leukocyte Esterase Ur 2+ LEU/UL (Negative); Need Manual Microscopic Reviewed; Nitrate Urine Negative (Negative); Protein Urine 2+ mg/dL (Negative); RBC Urine >100 /hpf (0-2); Specific Grav Ur 1.019 (1.001-1.035); Squamous Epithelial Cell Urine None Seen /hpf (Few); WBC Urine 21-50 /hpf (0-3); pH Urine 5.5 (5.0-9.0)
--- OUTSIDE RECORDS SUMMARY | 2025-03-01 16:00 | XMS_ITS | Referral Summary ---
Author Organization [address] [address] Care Team Providers Care Delivery Department Supervisor Name Role Phone Nataly Page NP Primary Care Provider Encounters Date Type Department Care Team Description 12/30/2024 9:30 AM CDT Office Visit [facility] Medical Group [facility] Care at [address] [phone] Niya Smith NP Corneal abrasion, [...] Diagnosed Date Coronary artery disease invo lving [place] coronary artery of [place] heart without angina pectoris 11/19/2024 Social History Tobacco Use Types Packs/Day Years Used Date Smoking Tobacco: Never Smokeless Tobacco: Never Tobacco Cessation:Counseling Given: Not Answered Sex and Gender Information Value Date Recorded Sex Assigned at Not on file Legal Sex Male 9:53 AM FLASH DEVELOPER Gender Identity Not on file Sexual Orientation [...] 172.7 cm (5' 8) 11/19/2024 9:18 AM FLASH DEVELOPER Body Mass Index 29.19 11/19/2024 9:18 AM FLASH DEVELOPER Plan of Treatment Not on file Insurance MEDICARE [facility] Address: [facility] [address] [place] [address] [employer] Care Teams Delivery Department Supervisor Relationship Specialty Start Date End Date Nataly Page NP [address] [facility] [place] [address] PCP - General Nurse Practitioner 10/11/24
--- OUTSIDE RECORDS SUMMARY | 2025-03-01 16:00 | XMS_ITS | Clinical Summary ---
Author Organization [address] Address [address] [place] [address] Care Team Providers Care Dormitory Keeper Name Role Phone Nataly Paeg NP Primary Care Provider Allergies No known [...] Diagnosed Date Coronary artery disease invo lving [place] coronary artery of [place] heart without angina pectoris 11/19/2024 Encounters Date Type Department Care Team Description 12/30/2024 9:30 AM CDT Office Visit [facility] Medical Group [facility] Care at [address] [phone] Niya Smith NP Corneal abrasion, [...] on file Legal Sex Male 9:53 AM NETWORK SUPPORT Gender Identity Not on file Sexual Orientation [...] 172.7 cm (5' 8) 11/19/2024 9:18 AM NETWORK SUPPORT Body Mass Index 29.19 11/19/2024 9:18 AM NETWORK SUPPORT Plan of Treatment Health Maintenance Due Date [...] , 06/23/2022, Additional history exists Insurance MEDICARE [facility] Care Teams Dormitory Keeper Relationship Specialty Start Date End Date Nataly Page NP [facility] [facility] [place] [address] PCP - General Nurse Practitioner 10/11/24
--- OUTSIDE RECORDS SUMMARY | 2025-03-01 16:00 | XMS_ITS | Continuity of Care Document ---
Author Organization [facility] Address [address] [facility] [place] [address] Phone Care Team Providers Care Casino Host Name Role Phone Deyanira Nolen MD Unavailable Unavailable Procedures Procedure Date CARDIOVASCULAR STRESS TEST CARDIOVASCULAR STRESS TEST Advance Directives Directive Yes / No Effective Date File Name No Information Encounters Encounter Description Practice Location Reason(s) For Visit Diagnoses Date Provider Providers Copied on Encounter [facility], [address], [place], [place], [id number], tel:[phone] [place] [address] No Information Callum Mcmillan. [address], [place], [address], [place]. tel: [phone] Referring Provider: Octavio Martinez, [address], [place], [address]. tel:[phone] Family History Family Member Type Diagnosis Age At Onset No Information Payers Payer name Insurance type Covered constitution party ID Khushi ferreira(s) [place] [id number] Social History Type Description Quantity Date Captured [...]
--- NOTE | 2025-03-01 16:46 | ED_ITS ---
HPI - General Adult General Chief complaint: Abdominal Pain Stated complaint: kidney stone? Time Seen by Provider: 03/01/25 15:05 History of Present Illness HPI narrative: 74-year-old male presents emergency department for evaluation for suprapubic abdominal pain. Patient states earlier today he was having some intense suprapubic abdominal pain and did ultimately present to the urgent care for evaluation. Patient was treated with Toradol and states his pain was improved in response to this treatment. At time of evaluation patient states he does have some mild discomfort but denies any significant pain. Patient denies any associated flank pain with this. Patient denies any pain with urination. Patient is well-appearing at time of evaluation. Patient does have a remote history of kidney stones approximately 25 years ago. Related Data Allergies Allergy/AdvReac Type Severity Reaction Status Date / Time No Known Allergies Allergy Verified 03/01/25 15:06 Review of Systems 2 Review of Systems: All systems reviewed & are unremarkable except as noted in HPI and below PMFSH Past Medical History Medical History Contracture, right shoulder History of stress test 3-4 years ago Seasonal allergies Surgical History Surgical History History of dental surgery 2-3 teeth removed Family History Family History Father Acute myocardial infarction Mother Arthritis Social History Social History Smoking status: Never smoker Alcohol intake: never Drinks per week: 2 Alcohol use details: wine, beer Substance use: never Substance use type: does not use Lack of Transportation: No Lack of Food: Never True Current Housing: I Have Housing Concerned About Future Housing: No Difficulty Paying Gas/Electric Bills: No Difficulty Paying for Meds: No Currently Unemployed: No Education: Master's Degree or Higher Difficulty w/ Childcare or Family Care: No Living arrangements: with family Occupation/Education: retired Spiritual care concerns: No Agree to blood products: Yes Exam 2 Narrative: APPEARANCE: Well appearing, no pain, no distress, well-nourished. HEAD: normocephalic, atraumatic. EYES: PERRLA/EOMI, conjunctivae clear. NOSE: Normal no drainage EARS:TMS clear with good light reflex. THROAT: Pharynx clear, no exudate. NECK: Supple. No adenopathy, no masses. RESPIRATORY: Airway patent, respirations nonlabored. Clear to auscultation bilaterally, no rales, rhonchi, wheezing. CARDIOVASCULAR: Regular rate and rhythm without murmurs rubs or gallops. ABDOMINAL: Soft, nontender, nondistended, normal bowel sounds MUSCULOSKELETAL: Moves all extremities. Strength/ROM intact, No edema, No calf tenderness. NEURO: Alert. Cranial nerves II through XII intact. Grossly intact SKIN: Warm, dry. Normal Color Course Vital Signs Vital signs: Vital Signs Temperature 97.5 F L 03/01/25 15:02 Pulse Rate 63 03/01/25 15:02 Respiratory Rate 18 03/01/25 15:02 Blood Pressure 133/79 03/01/25 15:02 Pulse Oximetry 99 03/01/25 15:02 Oxygen Delivery Room Air 03/01/25 15:02 Temperature 97.5 F L 03/01/25 15:02 Pulse Rate 63 03/01/25 17:33 Respiratory Rate 18 03/01/25 17:33 Blood Pressure 151/85 H 03/01/25 17:33 Pulse Oximetry 100 03/01/25 17:33 Oxygen Delivery Room Air 03/01/25 15:02 Medical Decision Making [facility] Narrative Medical decision making narrative: 74-year-old male presents emergency department for evaluation for CP. Abdominal pain. Patient is afebrile but does have a leukocytosis of 18.0 and hemoglobin of 14.2. Patient has an INR of 1.0. Patient has a creatinine of 1.34 with a previous baseline of 1.1. Patient has no elevation of lactic acid. UA is cloudy, with positive leukocyte esterase 21-50 white blood cells and greater than [address] abdomen pelvis does show a 9 mm stone in the distal right ureter and a 2.7 cm stone and the UPJ on the left with bilateral hydronephrosis. Case was discussed with the urologist on-call and patient will go to the OR for stent placement. Patient was also treated IV Rocephin the emergency department. Blood cultures were ordered. The patient was updated on the plan to go to the OR for stent placement. Differential Diagnosis Differential Diagnosis: Ureteral calculi, ureteral obstruction, urinary tract infection, sepsis Vital Signs Vital Signs: Vital Signs Temperature 97.5 F L 03/01/25 15:02 Pulse Rate 63 03/01/25 15:02 Respiratory Rate 18 03/01/25 15:02 Blood Pressure 133/79 03/01/25 15:02 Pulse Oximetry 99 03/01/25 15:02 Oxygen Delivery Room Air 03/01/25 15:02 Temperature 97.5 F L 03/01/25 15:02 Pulse Rate 63 03/01/25 17:33 Respiratory Rate 18 03/01/25 17:33 Blood Pressure 151/85 H 03/01/25 17:33 Pulse Oximetry 100 03/01/25 17:33 Oxygen Delivery Room Air 03/01/25 15:02 Lab Data Lab results reviewed: Yes I reviewed the patient's lab results. 03/01/25 15:19 03/01/25 15:19 Labs: Lab Results 03/01/25 Range/Units 15:19 WBC 18.0 H (4.5-10.0) K/mm3 RBC 4.33 L (4.6-6.20) M/mm3 Hgb 14.2 (14.0-18.0) g/dL Hct 41.8 L (42.0-52.0) % MCV 96.5 (80-100) fl MCH 32.8 (26-34) pg MCHC 34.0 (32-36) g/dl RDW 12.4 (11.5-14.5) % Plt Count 265 (150-375) k/mm3 MPV 10.4 (7.4-10.4) fl Immature Gran % (Auto) 0.4 (0-0.5) % Neut % (Auto) 80.5 H (45.5-73.1) % Lymph % (Auto) 15.0 L (18.3-44.2) % Coos % (Auto) 3.8 (2.6-8.5) % Eos % (Auto) 0.1 (0-4.4) % Baso % (Auto) 0.2 (0.2-1.2) % Lymph # (Auto) 2.69 (0.9-3.2) K/mm3 Co[place] # (Auto) 0.7 H (0.1-0.6) K/mm3 Eos # (Auto) 0.0 (0-0.3) K/mm3 Baso # (Auto) 0.0 (0.0-0.1) K/mm3 Abs Immat Gran (auto) 0.07 H (0.00-0.031) K/mm3 Absolute Neuts (auto) 14.5 H (1.3-6.7) K/mm3 Absolute Nucleated RBC 0.000 (0.0-0.012) K/mm3 Nucleated RBC % 0.0 (0.0-0.2) % PT 13.0 (11.1-14.7) Seconds INR 1.0 APTT 21.8 L (22.3-36.8) Seconds Sodium 141 (137-145) mmol/L Potassium 4.3 (3.4-5.0) mmol/L Chloride 106 (98-107) mmol/L Carbon Dioxide 24 (22-30) mmol/L Anion Gap 11 (4-12) mmol/L BUN 19 (9-20) mg/dL Creatinine 1.34 H (0.7-1.3) mg/dL Estim Creat Clear Calc 41 ml/min Estimated GFR 52 L (59 - ) Glucose 138 H (65-110) mg/dL Lactic Acid 0.9 (0.7-2.0) mmol/L Calcium 9.4 (8.4-10.2) mg/dL Total Bilirubin 0.5 (0.2-1.3) mg/dL AST 30 (17-59) U/L ALT 17 (6-50) U/L Alkaline Phosphatase 61 (38-126) U/L Total Protein 7.7 (6.3-8.2) g/dL Albumin 4.7 (3.5-5.1) g/dL Urine Color Dark yellow (Yellow) Urine Appearance Cloudy H (Clear) Urine pH 5.5 (5.0-9.0) Ur Specific [place] 1.019 (1.001-1.035) Urine Protein 2+ H (Negative) mg/dL Urine Glucose (UA) 1+ H (Negative) mg/dL Urine Ketones Trace H (Negative) mg/dL Ur Blood (Man) 3+ H (Negative) Urine Nitrate Negative (Negative) Urine Bilirubin Negative (Negative) Urine Urobilinogen 1.0 (<2.0) mg/dL Add Ur Microanalysis Reviewed Leukocyte Esterase Rfl 2+ H (Negative) ZENAIDA/UL Urine RBC >100 H (0-2) /hpf Urine WBC 21-50 H (0-3) /hpf Ur Squamous Epith Cells None seen (Few) /hpf Urine Bacteria None seen /hpf Urine Casts 3-5 Imaging Data Radiologist's impression: Impressions Abdomen/Pelvis CT 03/01/25 16:14 IMPRESSION: 1. Bilateral kidney stones with bilateral hydronephrotic changes. 2. Stone in the right lower ureter with hydroureter. 3. 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 4. Sclerotic area in the right iliac bone. Follow-up advised. Discharge Plan Discharge Clinical Impression: Obstruction of left ureteropelvic junction (UPJ) due to stone, Calculus of distal right ureter, Abnormal urinalysis Patient Disposition: Still a Patient Condition: Serious
--- OUTSIDE RECORDS SUMMARY | 2025-03-01 17:32 | XMS_ITS | Referral Summary ---
Author Organization [address] [address] Care Team Providers Care Contact Center Representative Name Role Phone Nataly Page NP Primary Care Provider [phone] Encounters Date Type Department Care Team Description 12/30/2024 9:30 AM CDT Office Visit [facility] Medical [facility] Care at [address] [address] Niya Smith NP Corneal abrasion, [...] Diagnosed Date Coronary artery disease invo lving [place] coronary artery of [place] heart without angina pectoris 11/19/2024 Social History Tobacco Use Types Packs/Day Years Used Date Smoking Tobacco: Never Smokeless Tobacco: Never Tobacco Cessation:Counseling Given: Not Answered Sex and Gender Information Value Date Recorded Sex Assigned at Not on file Legal Sex Male 9:53 AM IRONER MACHINE Gender Identity Not on file Sexual Orientation [...] 172.7 cm (5' 8) 11/19/2024 9:18 AM IRONER MACHINE Body Mass Index 29.19 11/19/2024 9:18 AM IRONER MACHINE Plan of Treatment Not on file Insurance MEDICARE [facility] Address: [facility] [address] [place] [address] [facility] Care Teams Contact Center Representative Relationship Specialty Start Date End Date Nataly Page NP [phone] [facility] [place] [address] PCP - General Nurse Practitioner 10/11/24
--- OUTSIDE RECORDS SUMMARY | 2025-03-01 17:32 | XMS_ITS | Continuity of Care Document ---
Author Organization [facility] Address [address] [place] [address] Phone Care Team Providers Care Feedmobile Driver Name Role Phone Deyanira Nolen MD Unavailable Unavailable Procedures Procedure Date CARDIOVASCULAR STRESS TEST CARDIOVASCULAR STRESS TEST Advance Directives Directive Yes / No Effective Date File Name No Information Encounters Encounter Description Practice Location Reason(s) For Visit Diagnoses Date Provider Providers Copied on Encounter [facility], [address], [place], [place], [id number], [phone] [address] [place] [address] No Information Callum Mcmillan. [address], [address], [place], [address], [place]. tel: [phone] Referring Provider: Octavio Martinez, [address], [place], [address]. tel:[phone] Family History Family Member Type Diagnosis Age At Onset No Information Payers Payer name Insurance type Covered alliance party ID Khushi ferreira(s) [place] [id number] Social History Type Description Quantity Date Captured [...]
--- OUTSIDE RECORDS SUMMARY | 2025-03-01 17:32 | XMS_ITS | Clinical Summary ---
Author Organization [address] Address [address] [place] [address] Care Team Providers Care Roading Engineer Name Role Phone Nataly Page NP Primary [...] Diagnosed Date Coronary artery disease invo lving [place] coronary artery of [place] heart without angina pectoris 11/19/2024 Encounters Date Type Department Care Team Description 12/30/2024 9:30 AM CDT Office Visit [facility] Medical Group [facility] Care at [address] [address] Niya Smith NP Corneal abrasion, [...] on file Legal Sex Male 9:53 AM FRONT SERVICES AGENT Gender Identity Not on file Sexual Orientation [...] 172.7 cm (5' 8) 11/19/2024 9:18 AM FRONT SERVICES AGENT Body Mass Index 29.19 11/19/2024 9:18 AM FRONT SERVICES AGENT Plan of Treatment Health Maintenance Due Date [...] , 06/23/2022, Additional history exists Insurance MEDICARE [facility] Care Teams Roading Engineer Relationship Specialty Start Date End Date Nataly Page NP [facility] [facility] [place] [address] PCP - General Nurse Practitioner 10/11/24
--- NOTE | 2025-03-01 17:58 | P.CONUR_ITS ---
Assessment and Plan Assessment and plan (1) Calculus of kidney: Code(s): N20.0 - Calculus of kidney Status: Acute Plan 74M with hx of stones presenting with leukocystosis, UA with potential signs of infection, and CT with right distal ureteral 9mm stones with hydro, and left partial staghorn with multiple stones noted and atrophic changes of left kidney. - Plan for OR intervention with right ureteral stent placement, possible attempted left ureteral stent placement for decompression of kidneys. Discussed risks/benefits of procedures, kncluding pain/bleeding, infection, damage to surrounding structures, possibility of being unable to place stents and needing neph tubes. Patient endorse understanding. I also stated importance of returning for stent removal and that retained stent can damage kidney, and patient endorses understanding. Urology Consult Note HPI Date Seen: 03/01/25 Requesting Physician: Venkatesh Ramirez MD Primary Care Provider: Nataly Page NP Consult Narrative Narrative: Geronimo Victoria is a 74 year old male presenting today with nephrolithiasis. Patient w/ a hx of nephrolithiasis in the past. Patient was having bilateral testicular pain and suprapubic pain today, and then as this persisted he presented in the ER. Had leukocytosis with a UA with some signs of potential infection, and Cr at 1.3. A CT scan showed patient had multiple left stones, and a distal right obstructing ureteral stone of about 9mm in size. Patient states overall he is feeling ok, though still having some pain. Denies fevers/chills, denies hematuria/dysuria. [facility] Past Medical History Medical History Contracture, right shoulder History of stress test 3-4 years ago Seasonal allergies Surgical History Surgical History History of dental surgery 2-3 teeth removed Family History Family History Father Acute myocardial infarction Mother Arthritis Social History Social History Smoking status: Never smoker Alcohol intake: never Drinks per week: 2 Alcohol use details: wine, beer Substance use: never Substance use type: does not use Lack of Transportation: No Lack of Food: Never True Current Housing: I Have Housing Concerned About Future Housing: No Difficulty Paying Gas/Electric Bills: No Difficulty Paying for Meds: No Currently Unemployed: No Education: Master's Degree or Higher Difficulty w/ Childcare or Family Care: No Living arrangements: with family Occupation/Education: retired Spiritual care concerns: No Agree to blood products: Yes Meds Home Medications and Allergies Home Medications ?Medication ?Instructions ?Recorded ?Confirmed ?Type aspirin 81 mg tablet,delayed 81 mg PO DAILY #90 tabs 10/10/24 01/30/25 Rx release atorvastatin 10 mg tablet (Lipitor) 10 mg PO QHS #90 tabs 10/10/24 01/30/25 Rx Allergies Allergy/AdvReac Type Severity Reaction Status Date / Time No Known Allergies Allergy Verified 03/01/25 15:06 Vital Signs Vital Signs - 24 hr 03/01/25 15:02 03/01/25 17:33 Temperature 36.4 C L Pulse Rate 63 63 Respiratory Rate 18 18 Blood Pressure 133/79 151/85 H Pulse Oximetry 99 100 Oxygen Delivery Room Air Exam 2 Const: Other: AOx3 HENMT: Other: PERRLA Resp: Other: NOnlabored respirations GI: Other: Nondistended : Other: No CVA tenderness Neuro: Other: AOx3 Results Labs 03/01/25 15:19 03/01/25 15:19 Labs: Short CBC 03/01/25 Range/Units 15:19 WBC 18.0 H (4.5-10.0) K/mm3 Hgb 14.2 (14.0-18.0) g/dL Hct 41.8 L (42.0-52.0) % Plt Count 265 (150-375) k/mm3 BMP 03/01/25 15:19 Sodium 141 Potassium 4.3 Chloride 106 Carbon Dioxide 24 BUN 19 Creatinine 1.34 H Glucose 138 H Calcium 9.4 Liver Function 03/01/25 Range/Units 15:19 Total Bilirubin 0.5 (0.2-1.3) mg/dL AST 30 (17-59) U/L ALT 17 (6-50) U/L Alkaline Phosphatase 61 (38-126) U/L Albumin 4.7 (3.5-5.1) g/dL Urine 03/01/25 Range/Units 15:19 Urine Color Dark yellow (Yellow) Urine Appearance Cloudy H (Clear) Urine pH 5.5 (5.0-9.0) Ur Specific [place] 1.019 (1.001-1.035) Urine Protein 2+ H (Negative) mg/dL Urine Glucose (UA) 1+ H (Negative) mg/dL Imaging Radiologist's impression: CT: IMPRESSION: 1. Bilateral kidney stones with bilateral hydronephrotic changes. 2. Stone in the right lower ureter with hydroureter. 3. 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 4. Sclerotic area in the right iliac bone. Follow-up advised.
[2025-03-01] MEDS: LIDOCAINE 2% GEL UROJET 10 ML PKG MUCOUS MEM (18:14)
[2025-03-01] MEDS: LACTATED RINGERS 1,000 ML 30 ML IV CONT (18:48)
--- NOTE | 2025-03-01 18:49 | P.OP_ITS ---
Procedure Note - Detailed Date of Procedure 03/01/25 Pre-op Diagnosis Bilateral obstructing ureteral stones Post-op Diagnosis Same Procedure Performed Cystoscopy, bilateral ureteral stent placement, right ureteroscopy and laser lithotripsy, basket extraction of right ureteral stone, bilateral retrograde pyelograms, intraoperative interpretation of fluoroscopy of <60 min Surgeon Venkatesh Ramirez MD Anesthesia Other (Sedation) Indications 74M with hx of stones presenting with leukocystosis, Cr 1.3, UA with potential signs of infection, and CT with right distal ureteral 9mm stones with hydro, and left partial staghorn with multiple stones noted and atrophic changes of left kidney. - Plan for OR intervention with right ureteral stent placement, possible attempted left ureteral stent placement for decompression of kidneys. Discussed risks/benefits of procedures, kncluding pain/bleeding, infection, damage to surrounding structures, possibility of being unable to place stents and needing neph tubes. Patient endorse understanding. I also stated importance of returning for stent removal and that retained stent can damage kidney, and patient endorses understanding Description of Procedure The patient was brought back to the operating theatre. After the induction of excellent anesthesia, a surgical time out was performed, and we verified the patient identification, site, laterality, and procedure. Patient received pre- operative antibiotics within 60 minutes of start time. The patient was placed in the dorsal lithotomy position. The genital area was prepped and draped in the usual, sterile fashion. We introduced a 22 Fr rigid cystoscope easily into the bladder. The urethra was noted to be unremarkable with mild trilobar hyperplasia and trabeculations in the bladder. The bladder was emptied. The scope was re- inserted. The right ureteral orifice was identified and cannulated, and we attempted but failed to place a wire up due to the distal stone. Therefore, we obtained the semirigid ureteroscope and performed ureteroscopy, and encountered the stone in the distal ureter which was causing some impaction and irritation to the ureter. We then performed laser lithotripsy of the stone with a 200 laser fiber at 1J and 10hz until we fragmented the stone enough to place a wire up to the kidney, and confirmed this on fluoroscopy. The patient was doing well, and so we continued to fragment the stone, and then obtained a basket and removed all the fragments in their entirety, and only left behind sand-like fragments. We then shot a retrograde pyelogram which showed no filling defects though did show hydronephrosis, and passed the ureteroscope up to the mid ureter to ensure no other stone fragments were left behind. Scope then removed, and no injury to ureter was noted, only some irritation from the previously impacted stone. A 4.8 variable lengthdouble-J stent was then placed under direct vision with a curl observed in the kidney and in the bladder. We not leave a string on the stent. We then turned to the left ureter, and placed the cystoscope back into the bladder. The left ureteral orifice was identified and cannulated with 5 Fr open ended catheter. We shoot a retrograde pyelogram which showed hydronephrosis and a filling defect where the stone in the renal pelvis was on CT.. A guidewire was placed into the catheter and advanced to the renal pelvis using fluoroscopy easily and noted the wire in the upper pole. A 4.8 variable length double-J stent was then placed under direct vision with a curl observed in the kidney and in the bladder. We did not leave a string on the stent.The bladder was emptied. The patient was then awoken without event, transferred to the recovery cart and transported to the PACU in good condition. Implants B/l 4.8F variable length double J stents. Estimated Blood Loss 0 Complications None Disposition Floor (From PACU to floor; to continue antibiotics and ensure patient is doing well overnight. Ok for discharge from urology perspective tomorrow if patient is doing well; would plan to treat patient with antibiotics for at least 7 days total due to previous UA )
--- NOTE | 2025-03-01 18:50 | S_PTH ---
PATIENT: Geronimo Victoria LOC: [id number] U#:[id number] AGE/SX: 74/M ROOM: 300 RE03/01/[address]: Venkatesh Ramirez MD : 1950 BED: 01 DIS: 03/02/2025 SPEC #: [id number] RECD: 03/04/25 07:48 STATUS: ALICIA RELiu #: [id number] MARCO: 03/01/25 18:[address]: Venkatesh Ramirez DEPT: [facility] Surgical RECD BY: Roxy Rodrigues ENTERED: 03/04/25 07:49 SP TYPE: Surgical OTHR DR: Nataly Page, JM Tissues: A - Stone Procedures: Gross Exam Level 1 Crystalline Analysis
--- NOTE | 2025-03-01 19:40 | PM.IMHP ---
H&P: HPI History of Present Illness Date/Time: 03/01/25 23:00 Chief Complaint: Abdominal pain. Narrative: This is a 74-year-old male with history of kidney stones who presented to the emergency department via private vehicle with complaints of abdominal pain. He presented to urgent care earlier this afternoon for evaluation of suprapubic abdominal pain and bilateral testicular pain associated with urinary urgency which began sometime this morning. The pain sounds colicky in nature and is similar to previous episodes of kidney stones. Abdominal x-ray showed bilateral nephrolithiasis and he was referred to the ED for further workup. She denies fever, chills, sweats, chest pain, shortness of breath, vomiting, dysuria, and hematuria. No history multidrug resistant organisms. In the ED: He was afebrile on arrival with stable vital signs. Labs were significant for WBC count of 18.0, creatinine 1.34, glucose 138, lactic acid 0.9. Urinalysis was positive for 2+ protein, trace ketones, 3+ blood, 2+ leukocyte esterase, greater than 100 RBC, and 21 to 50 WBC. Abdomen/pelvis CT showed bilateral kidney stones with bilateral hydronephrotic changes, stone in the right lower ureter with hydroureter, staghorn stone in the left periureteric junction, and sclerotic area in the right iliac bone. He was taken to OR and is now status post cystoscopy with bilateral ureteral stent placement, right ureteroscopy and laser lithotripsy, basket extraction of right ureteral stone, and bilateral retrograde pyelograms. She is feeling much better and is without discomfort at the time my evaluation. Review of Systems Review of Systems: 12 systems were reviewed and are negative except for as per HPI. [facility] Past Medical History Medical History (Updated 03/02/25 @ 03:28 by Julia Lazar PA-C) [place] coronary artery calcium score less than 100 score of 56 per patient report, started on statin and aspirin Kidney stones Hyperlipidemia Prediabetes History of stress test 3-4 years ago Seasonal allergies Surgical History Surgical History (Updated 03/01/25 @ 22:29 by Julia Lazar PA-C) History of colonoscopy (01/30/25) internal hemorrhoids History of tooth extraction Family History Family History Father Acute myocardial infarction Mother Arthritis Social History Social History (Updated 03/02/25 @ 03:26 by Julia Lazar PA-C) Social History: Surrogate medical decision maker: Sammi Victoria, spouse. Code status: Full code. Smoking status: Never smoker Second hand tobacco smoke exposure: No Alcohol intake: current Drinks per week: 1 Alcohol use details: wine, beer Substance use: never Substance use type: does not use Do You Feel Safe in your Home?: Yes Lack of Transportation: No Lack of Food: Never True Current Housing: I Have Housing Concerned About Future Housing: No Difficulty Paying Gas/Electric Bills: No Difficulty Paying for Meds: No Currently Unemployed: No Education: Master's Degree or Higher Difficulty w/ Childcare or Family Care: No Living arrangements: with family Occupation/Education: retired Spiritual care concerns: No Agree to blood products: Yes Meds Home Medications and Allergies Home Medications ?Medication ?Instructions ?Recorded ?Confirmed ?Type atorvastatin 10 mg tablet (Lipitor) 10 mg PO QHS #90 tabs 10/10/24 03/01/25 Rx aspirin 81 mg tablet,delayed 81 mg PO QHS 03/01/25 03/01/25 History release Allergies Allergy/AdvReac Type Severity Reaction Status Date / Time No Known Allergies Allergy Verified 03/01/25 15:06 Vital Signs Vital Signs - 24 hr 03/01/25 15:02 03/01/25 17:33 03/01/25 18:48 Temperature 97.5 F L 97.3 F L Pulse Rate 63 63 63 Respiratory Rate 18 18 14 Blood Pressure 133/79 151/85 H 129/77 Pulse Oximetry 99 100 97 Oxygen Delivery Room Air Room Air Exam Narrative: General: Nontoxic-appearing gentleman sitting up in bed in no distress. Weight: 80.6 kg. BMI: 29.7. HEENT: PERRL, EOMI. Sclera anicteric. Oral mucosa moist. Neck: Supple. Respiratory: Lungs are clear to auscultation bilaterally. Cardiovascular: Regular rate and rhythm with S1-S2. Gastrointestinal: Abdomen is soft, nontender, and nondistended with positive bowel sounds. No CVA tenderness. Skin: Warm and dry. Extremities: No cyanosis, clubbing, or edema. Radial and pedal pulses intact. Neurological: Alert. Cranial nerves 2-12 are grossly intact. No gross focal deficits to casual conversation. Psychiatric: Pleasant and cooperative with normal mood and affect. Judgment and insight intact. H&P: Results Labs Labs: Short CBC 03/01/25 Range/Units 15:19 WBC 18.0 H (4.5-10.0) K/mm3 Hgb 14.2 (14.0-18.0) g/dL Hct 41.8 L (42.0-52.0) % Plt Count 265 (150-375) k/mm3 BMP 03/01/25 15:19 Sodium 141 Potassium 4.3 Chloride 106 Carbon Dioxide 24 BUN 19 Creatinine 1.34 H Glucose 138 H Calcium 9.4 Liver Function 03/01/25 Range/Units 15:19 Total Bilirubin 0.5 (0.2-1.3) mg/dL AST 30 (17-59) U/L ALT 17 (6-50) U/L Alkaline Phosphatase 61 (38-126) U/L Albumin 4.7 (3.5-5.1) g/dL Urine 03/01/25 Range/Units 15:19 Urine Color Dark yellow (Yellow) Urine Appearance Cloudy H (Clear) Urine pH 5.5 (5.0-9.0) Ur Specific [place] 1.019 (1.001-1.035) Urine Protein 2+ H (Negative) mg/dL Urine Glucose (UA) 1+ H (Negative) mg/dL Impressions Abdomen/Pelvis CT 03/01/25 16:14 IMPRESSION: 1. Bilateral kidney stones with bilateral hydronephrotic changes. 2. Stone in the right lower ureter with hydroureter. 3. 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 4. Sclerotic area in the right iliac bone. Follow-up advised. Assessment and Plan Assessment and plan (1) Hydronephrosis with renal and ureteral calculus obstruction: Code(s): N13.2 - Hydronephrosis with renal and ureteral calculous obstruction Status: Acute (2) Staghorn renal calculus: Code(s): N20.0 - Calculus of kidney Status: Acute (3) Acute kidney injury: Code(s): N17.9 - Acute kidney failure, unspecified Status: Acute (4) Elevated blood pressure reading: Code(s): R03.0 - Elevated blood-pressure reading, without diagnosis of hypertension Status: Acute (5) Bone lesion: Code(s): M89.9 - Disorder of bone, unspecified Status: Acute Plan The patient presented to the emergency department from urgent care for further evaluation of kidney stones noted on abdominal x-ray after he presented with colicky abdominal and groin pain as detailed in HPI. Labs, imaging, EKG, and all reports were personally reviewed. CT scan showed bilateral kidney stones with hydronephrotic changes, staghorn stone in the left pelvic ureteral junction, and a stone in the right lower ureter with hydroureter. He was taken to the OR and underwent cystoscopy with bilateral stent placement, right ureteroscopy with laser lithotripsy, basket extraction of right ureteral stone and bilateral retrograde pyelograms. Analgesics and antiemetics are available as needed. He technically has an acute kidney injury, likely related to the obstructing stones, and I suspect this will improve by morning. Continue IV fluids overnight. He is on ceftriaxone pending urine culture. A few blood pressure readings were high possibly due to related to pain, and they will be monitored closely overnight to see how he trends. A sclerotic area was noted in the right iliac bone on CT scan this will need to be followed up as an outpatient. His home medications will be reviewed and resumed as appropriate. Findings and treatment plan were discussed with the patient. Questions were solicited and answered to satisfaction. The patient's medical management will be taken over by the hospitalist team in a.m. Quality VTE Prophylaxis VTE prophylaxis: mechanical ordered If No VTE Prophylaxis Answer both mechanical and pharmacologic: Reason no pharmacologic proph: medical contraindication (to OR today) The patient has been admitted under observation status. Hospitalist [facility] Advance Care Plan I have confirmed that the patient's Advanced Care Plan is present, code status is documented, or surrogate decision maker is listed in patient medical record.: Yes Medication Reconciliation I have utilized all available resources to obtain, update and review the patients current medications (includes all prescriptions, OTC, herbals, cannabis, and nutritional supplements).: Yes
--- NOTE | 2025-03-01 20:05 | ADMGEN ---
This patient, Geronimo Victoria, was admitted to [facility] Surg Room 300-01. Patient/family oriented to hospital policies and general routines including ID bracelet, bed and alarms, visiting hours, pain management, procedures, bathroom and other care routines, personal items, smoking policy, room service/diet, and visiting hours. Information on how to activate the Rapid Response Team has been discussed. Patient/Family are encouraged to report perceived risks to care and to ask questions if they do not understand what they are told or what they should do.
[2025-03-01] MEDS: ASPIRIN 81 MG ENTERIC TABLET PO (23:01)
[2025-03-01] MEDS: SODIUM CHLORIDE 0.9% IV 1,000 ML 100 ML IV CONT (23:01)
[2025-03-01] MEDS: ATORVASTATIN 10 MG TABLET PO (23:01)
[2025-03-02 00:32] VITALS: BP 151/70; PULSE 76; RESP 16; TEMP 36.8; O2SAT 99
[2025-03-02 04:21] VITALS: BP 127/58; PULSE 70; RESP 16; TEMP 36.4; O2SAT 96
[2025-03-02 06:23] LABS: Hematocrit 36.1 % (42.0-52.0); Hemoglobin 12.1 g/dL (14.0-18.0); Mean Corpuscular HGB Conc 33.5 g/dl (32-36); Mean Corpuscular Volume 95.5 fl (80-100); Mean Platelet Volume 10.8 fl (7.4-10.4); Platelet Count Result 219 k/mm3 (150-375); Red Blood Count 3.78 M/mm3 (4.6-6.20); Red Cell Distribution Width 12.5 % (11.5-14.5); White Blood Count 11.9 K/mm3 (4.5-10.0)
[2025-03-02 06:33] LABS: Anion Gap 5 mmol/L (4-12); Blood Urea Nitrogen 20 mg/dL (9-20); Calcium 8.5 mg/dL (8.4-10.2); Carbon Dioxide 24 mmol/L (22-30); Chloride 110 mmol/L (98-107); Estimated CRCL calculation 42 ml/min; Estimated Glomerular Filt Rate 53; Glucose 133 mg/dL (65-110); Potassium 4.1 mmol/L (3.4-5.0); Sodium 139 mmol/L (137-145)
--- NOTE | 2025-03-02 14:14 | WPDUROPN2 ---
Progress Note: A&P Assessment and Plan (1) Hydronephrosis with renal and ureteral calculus obstruction: Code(s): N13.2 - Hydronephrosis with renal and ureteral calculous obstruction Status: Acute Assessment and Plan: Patient status post cystoscopy, right ureteroscopy and laser lithotripsy and basket extraction of stone, and bilateral ureteral stent placement. She is doing well overall. His white blood cell count is down to 11, and his creatinine is stable 1.3. He is afebrile and he is feeling well overall. He has been on ceftriaxone. -patient feels strongly that he would like to go home. I feel this is reasonable as he is voiding well, his white blood cell count is down, he is having minimal discomfort, and he is hemodynamically stable. His cultures are still pending, but due to the improvement on ceftriaxone I feel it is reasonable to discharge him on oral aversion a 3rd generation cephalosporin like cefdinir. I will have him discharged with Flomax and cefdinir today. -plan will be for the patient to return to have this right stent removed, and he will require a procedure to treat the left-sided stones as they are larger, and this may be either PCNL versus staged ureteroscopy. Patient endorses understanding that it is imperative to ensure follow-up and not allow for a retained stent. (2) Staghorn renal calculus: Code(s): N20.0 - Calculus of kidney Status: Acute (3) Calculus of distal right ureter: Code(s): N20.1 - Calculus of ureter Status: Acute Subjective Subjective Date/Time Seen: 03/02/25 14:14 Interval history: NAEO. Patient feeling well. VOiding appropriate, minimal discomfort. WBC down to 11, Cr is stable at 1.3. Patient would like ot go home. Afebrile, hemodynamically stable. Exam Const: General: comfortable and no acute distress GI: Other: Nondistended : Other: No CVA tenderness Objective Data Vital Signs Vital Signs: Vital Signs - 24 hr 03/01/25 15:02 03/01/25 17:33 03/01/25 18:48 Temperature 36.4 C L 36.3 C L Pulse Rate 63 63 63 Respiratory Rate 18 18 14 Blood Pressure 133/79 151/85 H 129/77 Pulse Oximetry 99 100 97 Oxygen Delivery Room Air Room Air 03/01/25 19:00 03/01/25 19:15 03/01/25 19:30 Temperature Pulse Rate 60 62 61 Respiratory Rate 16 16 16 Blood Pressure 129/69 135/76 139/90 Pulse Oximetry 98 99 99 Oxygen Delivery Room Air Room Air Room Air 03/01/25 19:45 03/01/25 20:15 03/01/25 20:54 Temperature 36.0 C L 36.1 C L Pulse Rate 61 65 63 Respiratory Rate 15 24 H 16 Blood Pressure 140/87 130/70 147/77 H Pulse Oximetry 100 100 100 Oxygen Delivery Room Air 03/01/25 21:46 03/01/25 22:17 03/02/25 00:32 Temperature 36.6 C 36.8 C Pulse Rate 72 63 76 Respiratory Rate 16 16 16 Blood Pressure 129/85 151/70 H Pulse Oximetry 98 100 99 Oxygen Delivery Room Air 03/02/25 04:21 Temperature 36.4 C L Pulse Rate 70 Respiratory Rate 16 Blood Pressure 127/58 L Pulse Oximetry 96 Oxygen Delivery Intake/Output Intake/Output: Intake & Output 02/27/25 02/28/25 03/01/25 03/02/25 23:59 23:59 23:59 23:59 Intake Total 250 890 Output Total 10 Balance 240 890 Meds/Results Medications: Active Medications Generic Name Dose Route Start Last Admin Trade Name Freq PRN Reason Stop Dose Admin Acetaminophen 650 mg 03/01/25 19:42 Acetaminophen 325 Mg Tablet PO Q6H PRN Mild Pain (1-3) or Fever Hydrocodone Bitart/Acetaminophen 1 tab 03/01/25 19:42 Hydrocodone/Acetaminophen (*Crx) 5-325 Mg Tablet PO Q6H PRN Pain Rated 4-6 Aspirin 81 mg 03/01/25 22:35 03/01/25 23:01 Aspirin 81 Mg Enteric Tablet PO 81 mg QHS SEAN Administration Atorvastatin Calcium 10 mg 03/01/25 22:35 03/01/25 23:01 Atorvastatin 10 Mg Tablet PO 10 mg QHS SEAN Administration Ceftriaxone Sodium 1 gm in 50 mls @ 100 mls/hr 03/02/25 17:00 Rocephin 1 Gm/Ns 50 Ml IVPB Q24H SEAN Sodium Chloride 1,000 mls @ 100 mls/hr 03/01/25 22:35 03/01/25 23:01 Normal Saline Iv IV CONT 100 mls/hr .Q10H SEAN Administration Morphine Sulfate 2 mg 03/01/25 19:42 Morphine Sulfate (*Crx) 2 Mg/Ml Inj IV PUSH Q4H PRN Pain Rated 7-10 Radiology Results: ITS Impressions Abdomen/Pelvis CT 03/01/25 16:14 IMPRESSION: 1. Bilateral kidney stones with bilateral hydronephrotic changes. 2. Stone in the right lower ureter with hydroureter. 3. 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 4. Sclerotic area in the right iliac bone. Follow-up advised. Labs Labs: Laboratory Results - last 24 hr 03/01/25 03/02/25 15:19 05:59 WBC 18.0 H 11.9 H RBC 4.33 L 3.78 L Hgb 14.2 12.1 L Hct 41.8 L 36.1 L MCV 96.5 95.5 MCH 32.8 32.0 MCHC 34.0 33.5 RDW 12.4 12.5 Plt Count 265 219 MPV 10.4 10.8 H Immature Gran % (Auto) 0.4 Neut % (Auto) 80.5 H Lymph % (Auto) 15.0 L [place] % (Auto) 3.8 Eos % (Auto) 0.1 Baso % (Auto) 0.2 Lymph # (Auto) 2.69 [place] # (Auto) 0.7 H Eos # (Auto) 0.0 Baso # (Auto) 0.0 Abs Immat Gran (auto) 0.07 H Absolute Neuts (auto) 14.5 H Absolute Nucleated RBC 0.000 Nucleated RBC % 0.0 PT 13.0 INR 1.0 APTT 21.8 L Sodium 141 139 Potassium 4.3 4.1 Chloride 106 110 H Carbon Dioxide 24 24 Anion Gap 11 5 BUN 19 20 Creatinine 1.34 H 1.31 H Estim Creat Clear Calc 41 42 Estimated GFR 52 L 53 L Glucose 138 H 133 H Lactic Acid 0.9 Calcium 9.4 8.5 Magnesium 2.0 Total Bilirubin 0.5 AST 30 ALT 17 Alkaline Phosphatase 61 Total Protein 7.7 Albumin 4.7 Urine Color Dark yellow Urine Appearance Cloudy H Urine pH 5.5 Ur Specific [place] 1.019 Urine Protein 2+ H Urine Glucose (UA) 1+ H Urine Ketones Trace H Ur Blood (Man) 3+ H Urine Nitrate Negative Urine Bilirubin Negative Urine Urobilinogen 1.0 Add Ur Microanalysis Reviewed Leukocyte Esterase Rfl 2+ H Urine RBC >100 H Urine WBC 21-50 H Ur Squamous Epith Cells None seen Urine Bacteria None seen Urine Casts 3-5
--- NOTE | 2025-03-02 14:22 | PM.DS ---
DS: Admitting Diagnosis Discharge Date 03/02/2025 Admitting Diagnosis Bilateral obstructing ureteral stones DS: Discharge Diagnosis Discharge Diagnosis (1) Hydronephrosis with renal and ureteral calculus obstruction: Code(s): N13.2 - Hydronephrosis with renal and ureteral calculous obstruction Status: Acute (2) Calculus of distal right ureter: Code(s): N20.1 - Calculus of ureter Status: Acute Assessment and Plan: Patient status post cystoscopy, right ureteroscopy and laser lithotripsy and basket extraction of stone, and bilateral ureteral stent placement. She is doing well overall. His white blood cell count is down to 11, and his creatinine is stable 1.3. He is afebrile and he is feeling well overall. He has been on ceftriaxone. -patient feels strongly that he would like to go home. I feel this is reasonable as he is voiding well, his white blood cell count is down, he is having minimal discomfort, and he is hemodynamically stable. His cultures are still pending, but due to the improvement on ceftriaxone I feel it is reasonable to discharge him on oral aversion a 3rd generation cephalosporin like cefdinir for 14 days. I will have him discharged with Flomax and cefdinir today. -plan will be for the patient to return to have this right stent removed, and he will require a procedure to treat the left-sided stones as they are larger, and this may be either PCNL versus staged ureteroscopy. Patient endorses understanding that it is imperative to ensure follow-up and not allow for a retained stent. (3) Staghorn renal calculus: Code(s): N20.0 - Calculus of kidney Status: Acute Plan Patient status post cystoscopy, right ureteroscopy and laser lithotripsy and basket extraction of stone, and bilateral ureteral stent placement. She is doing well overall. His white blood cell count is down to 11, and his creatinine is stable 1.3. He is afebrile and he is feeling well overall. He has been on ceftriaxone. -patient feels strongly that he would like to go home. I feel this is reasonable as he is voiding well, his white blood cell count is down, he is having minimal discomfort, and he is hemodynamically stable. His cultures are still pending, but due to the improvement on ceftriaxone I feel it is reasonable to discharge him on oral aversion a 3rd generation cephalosporin like cefdinir for 14 days. I will have him discharged with Flomax and cefdinir today. -plan will be for the patient to return to have this right stent removed, and he will require a procedure to treat the left-sided stones as they are larger, and this may be either PCNL versus staged ureteroscopy. Patient endorses understanding that it is imperative to ensure follow-up and not allow for a retained stent. DS: Summary Hospital Course Hospital Course: Patient presented to the emergency room with some suprapubic discomfort and found to have signs of urinary tract infection as well as bilateral obstructing ureteral stones, with right-sided 9 mm distal stone, and left-sided UPJ 2.7 cm stone, as well as other larger stones throughout the kidney. White blood cell count was 18, and creatinine is 1.3, the patient was hemodynamically stable. Went to the operating room and perform cystoscopy, right ureteroscopy and laser lithotripsy and basket extraction of stone, and bilateral ureteral stent placement. Patient tolerated this well. This was performed on 03/01/2025. The next day the patient was doing well. He was voiding appropriately. His pain was well controlled. His white blood cell count trended down to 11.9. His creatinine was stable 1.3. He was continued on ceftriaxone. The patient felt very strongly he wants to discharge home. Time Spent with Patient Time attestation: Total time spent providing and/or coordinating discharge services: Exam Const: General: comfortable and no acute distress : Other: No CVA tenderness DS: Data Data Completed and Pending Pending studies at discharge: Pending at discharge 03/01/25 18:50 Surgical [PTH] Routine Labs on day of discharge: Labs from last 24 hours 03/02/25 03/01/25 05:59 15:19 WBC 11.9 H 18.0 H RBC 3.78 L 4.33 L Hgb 12.1 L 14.2 Hct 36.1 L 41.8 L MCV 95.5 96.5 MCH 32.0 32.8 MCHC 33.5 34.0 RDW 12.5 12.4 Plt Count 219 265 MPV 10.8 H 10.4 Immature Gran % (Auto) 0.4 Neut % (Auto) 80.5 H Lymph % (Auto) 15.0 L [place] % (Auto) 3.8 Eos % (Auto) 0.1 Baso % (Auto) 0.2 Lymph # (Auto) 2.69 [place] # (Auto) 0.7 H Eos # (Auto) 0.0 Baso # (Auto) 0.0 Abs Immat Gran (auto) 0.07 H Absolute Neuts (auto) 14.5 H Absolute Nucleated RBC 0.000 Nucleated RBC % 0.0 PT 13.0 INR 1.0 APTT 21.8 L Sodium 139 141 Potassium 4.1 4.3 Chloride 110 H 106 Carbon Dioxide 24 24 Anion Gap 5 11 BUN 20 19 Creatinine 1.31 H 1.34 H Estim Creat Clear Calc 42 41 Estimated GFR 53 L 52 L Glucose 133 H 138 H Lactic Acid 0.9 Calcium 8.5 9.4 Magnesium 2.0 Total Bilirubin 0.5 AST 30 ALT 17 Alkaline Phosphatase 61 Total Protein 7.7 Albumin 4.7 Urine Color Dark yellow Urine Appearance Cloudy H Urine pH 5.5 Ur Specific [place] 1.019 Urine Protein 2+ H Urine Glucose (UA) 1+ H Urine Ketones Trace H Ur Blood (Man) 3+ H Urine Nitrate Negative Urine Bilirubin Negative Urine Urobilinogen 1.0 Add Ur Microanalysis Reviewed Leukocyte Esterase Rfl 2+ H Urine RBC >100 H Urine WBC 21-50 H Ur Squamous Epith Cells None seen Urine Bacteria None seen Urine Casts 3-5 Preliminary micro results at discharge 03/01/25 17:38 Blood Culture - Preliminary Blood Procedures/Treatments: Cystoscopy, right ureteroscopy and laser lithotripsy and basket extraction of stone, bilateral ureteral stent placement, bilateral retrograde pyelograms Discharge Plan Discharge Consulting providers: Venkatesh Ramirez Discharging Clinician: Venkatesh Ramirez Patient Disposition: Home Activity: as tolerated Diet: as tolerated Discharge Instructions: You will have some blood in your urine, and some burning with urination. Stay as hydrated as you can. You have stents in place in both kidneys - the plan will be to remove the right sided stent in the next week or two; however, the left stent will stay in place and you will need a procedure to take care of the large stones in the left kidney. If you have fevers/chills, severe clots, inability to urinate - please call or go to the emergency room. [facility] clinic will call you to schedule your follow up appointment in the near future. Patient Language: Greenlandic Stand Alone Forms: General Discharge Instructions Follow-up/Referrals: Jon Dempsey MD [Physician] - 03/12/25 Discharge Medications: New tamsulosin [Flomax] 0.4 mg capsule 0.4 mg PO DAILY Qty: 30 0RF cefdinir 300 mg capsule 300 mg PO Q12H Qty: 28 0RF Continued aspirin 81 mg tablet,delayed release (DR/EC) 81 mg PO QHS atorvastatin [Lipitor] 10 mg tablet 10 mg PO QHS Qty: 90 3RF Date of admission: 03/01/25 20:05 Primary Care Provider: Nataly Page Admitting Provider: Venkatesh Ramirez Attending physician on admission: Venkatesh Ramirez Condition: Serious
--- OUTSIDE RECORDS SUMMARY | 2025-03-04 08:05 | XMS_ITS | Clinical Summary ---
Author Organization [address] Address [address] [place] [address] Care Team Providers Care Protection Specialist Name Role Phone Nataly Page NP Primary [...] Diagnosed Date Coronary artery disease invo lving [place] coronary artery of [place] heart without angina pectoris 11/19/2024 Encounters Date Type Department Care Team Description 12/30/2024 9:30 AM CDT Office Visit [facility] Medical Group [facility] Care at [address] [address] Niya Smith NP Corneal abrasion, [...] on file Legal Sex Male 9:53 AM 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 Address: [facility] [id number] [id number] [facility] Care Teams Protection Specialist Relationship Specialty Start Date End Date Nataly Page NP [facility] [facility] [place] [address] PCP - General Nurse Practitioner 10/11/24
--- OUTSIDE RECORDS SUMMARY | 2025-03-04 08:06 | XMS_ITS | Referral Summary ---
Author Organization [address] [address] Care Team Providers Care Field Marketing Representative Name Role Phone Nataly Page NP Primary Care Provider Encounters Date Type Department Care Team Description 12/30/2024 9:30 AM CDT Office Visit [facility] Medical Group [facility] Care at [address] [address] Niya Smith NP Corneal abrasion, [...] Diagnosed Date Coronary artery disease invo lving [place] coronary artery of [place] heart without angina pectoris 11/19/2024 Social History Tobacco Use Types Packs/Day Years Used Date Smoking Tobacco: Never Smokeless Tobacco: Never Tobacco Cessation:Counseling Given: Not Answered Sex and Gender Information Value Date Recorded Sex Assigned at Not on file Legal Sex Male 9:53 AM 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 [place] [address] PCP - General Nurse Practitioner 10/11/24
--- OUTSIDE RECORDS SUMMARY | 2025-03-04 08:06 | XMS_ITS | Continuity of Care Document ---
Author Organization [facility] Address [address] [facility] [address] [place] [address] Phone Care Team Providers Care Head Sampler Name Role Phone Deyanira Nolen MD Unavailable Unavailable Procedures Procedure Date CARDIOVASCULAR STRESS TEST CARDIOVASCULAR STRESS TEST Advance Directives Directive Yes / No Effective Date File Name No Information Encounters Encounter Description Practice Location Reason(s) For Visit Diagnoses Date Provider Providers Copied on Encounter [facility], [address], [place], [place], [id number], tel:[phone] [address] [place] [address] No Information Callum Mcmillan. [address], [address], [place], [address], [place]. tel: [phone] Referring Provider: Octavio Martinez, [address], [place], [address]. tel:[phone] Family History Family Member Type Diagnosis Age At Onset No Information Payers Payer name Insurance type Covered constitution party ID Khushi ferreira(s) [place] [id number] Social History Type Description Quantity Date Captured [...]
== END 2025-03-02 14:35 | disposition home or self-care (01) ==
LOC: ANHED 15:58 → ANHSURGERY 17:30 → ANH3MEDSUR 20:12
PROVIDERS: Physician Assistant; Admitting Provider Internal Medicine; Emergency Provider Emergency Medicine; PCP Nurse Practitioner; Visit Provider Urology
PROC: (CPT 52352; principal; 2025-03-01 17:45)
DX: N13.2 Hydronephrosis with renal and ureteral calculous obstruction (principal); N17.9 Acute kidney failure, unspecified; R03.0 Elevated blood-pressure reading, without diagnosis of hypertension; M89.9 Disorder of bone, unspecified; Z79.82 Long term (current) use of aspirin; Z79.899 Other long term (current) drug therapy
CPT/HCPCS: 52356; 52332; 36415; 74177; 74420; 80048; 80053; 81001; 82365; 83605; 83735; 85025; 85027; 85610; 85730; 87040; 87086; 88300; 96361; 96365; 99285; A9270; C1758; C2617; G0378; J0696; J2003; J2704; J3010; J7030; J7120; Q9966; Q9967

== ENCOUNTER 2025-03-13 12:59 | Outpatient (CLI) | payer MEDICARE, SELFPAY ==
--- NOTE | ~2025-03-13 | XR_ITS ---
XR abdomen/kub 1V Ordering provider: Mac Jordan MD History: . calcium kidney stone . Comparison: None. FINDINGS: BOWEL: Nonobstructive bowel gas pattern. ORGANOMEGALY: None. SIGNIFICANT PATHOLOGIC CALCIFICATIONS: Multiple stones in the left kidney with staghorn stones. Bilat eral double-J stent. This stone seen in the right kidney is most likely unchanged although not very c lear. OTHER: No free air is seen under the diaphragm. Calcified lymph node is projected over the right sacral alar unchanged. IMPRESSION: NO ACUTE ABDOMINAL FINDINGS. Bilateral double-J stent. Multiple left kidney stones. Reviewed, dictated and finalized at location A.
== END 2025-03-13 13:00 | disposition home or self-care (01) ==
PROVIDERS: PCP Nurse Practitioner; Visit Provider Urology
DX: N20.0 Calculus of kidney (principal)
CPT/HCPCS: 74018

== ENCOUNTER 2025-04-10 10:26 | Outpatient (CLI) | payer MEDICARE, SELFPAY ==
--- NOTE | 2025-04-10 10:37 | ECG_ITS ---
Test Date: 2025-04-10 10:50:00 Measurements Intervals [place] Rate: 62 P: 11 MN: 190 QRS: 1 QRSD: 100 T: 31 QT: 387 QTc: 394 Interpretive Statements SINUS RHYTHM LOW QRS VOLTAGE IN PRECORDIAL LEADS [QRS DEFLECTION < 1.0 mV IN CHEST LEADS] ABNORMAL ECG No previous ECG available for comparison Electronically Signed On 04-10-2025 14:06:09 CDT by Carlos Dotson M.D.
--- OUTSIDE RECORDS SUMMARY | 2025-04-10 10:40 | XMS_ITS | Continuity of Care Document ---
Author Organization [facility] Address [address] [facility] [address] [place] [address] Phone Care Team Providers Care Rn Interventional Name Role Phone Deyanira Nolen MD Unavailable Unavailable Procedures Procedure Date CARDIOVASCULAR STRESS TEST CARDIOVASCULAR STRESS TEST Advance Directives Directive Yes / No Effective Date File Name No Information Encounters Encounter Description Practice Location Reason(s) For Visit Diagnoses Date Provider Providers Copied on Encounter [facility], [address], [place], [place], [id number], tel:[phone] [address] [place] [address] No Information Callum Mcmillan. [address], [place], [address], [place]. tel: [phone] Referring Provider: Octavio Martinez, [address], [place], [address]. tel:[phone] Family History Family Member Type Diagnosis Age At Onset No Information Payers Payer name Insurance type Covered green party ID Khushi ferreira(s) [place] [id number] Social History Type Description Quantity Date Captured [...]
--- OUTSIDE RECORDS SUMMARY | 2025-04-10 10:40 | XMS_ITS | Clinical Summary ---
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 SIGNAL OPERATOR Gender Identity Not on file Sexual Orientation [...] 172.7 cm (5' 8) 11/19/2024 9:18 AM ALARM SIGNAL OPERATOR Body Mass Index 29.19 11/19/2024 9:18 AM ALARM SIGNAL OPERATOR Plan of Treatment Health Maintenance Due Date Last Done Comments Depression Screening 1948 Fall Risk Assessment 1948 Hepatitis C Screening 1948 DTaP/Tdap/Td Vaccine (1 - Tdap) 1959 Hepatitis B Screening 1966 Pneumococcal vaccine 65+ (1 of 1 - PCV) 1998 Zoster Vaccine (1 of 2) 1998 Well Visit 65+ 2013 Covid-19 Vaccine (2023- 5 season) 2025 07/21/2024, 06/22/2023, 02/02/2023, Additional history exists Influenza Vaccine Completed 07/21/2024, , 06/23/2022, Additional history exists Insurance MEDICARE [facility] Care Teams Piercing Mill Operator Relationship Specialty Start Date End Date Nataly Page NP [facility] [place], [place] [id number] PCP - General Nurse Practitioner 10/11/24
--- OUTSIDE RECORDS SUMMARY | 2025-04-10 10:40 | XMS_ITS | Clinical Summary ---
Author Organization [facility] Address [address] [place] [address] Care Team Providers Care Excavator Backhoe Operator Name Role Phone RiaReynold nichols DO Primary Care Provider [phone] Social History Tobacco Use Types Packs/Day Years Used Date Smoking Tobacco: Never Assessed Sex and Gender Information Value Date Recorded Sex Assigned at Male 10/04/2024 2:56 PM MANAGER FLOOR Legal Sex Male 12:24 PM MANAGER FLOOR Gender Identity Not on file Sexual Orientation [...] complete this topic Insurance MEDICARE Care Teams Excavator Backhoe Operator Relationship Specialty Start Date End Date Reynold Nettles DO [address] [place] [address] PCP - General 10/08/24
--- OUTSIDE RECORDS SUMMARY | 2025-04-10 10:40 | XMS_ITS | Referral Summary ---
Author Organization [address] Address [address] [place] [address] Care Team Providers Care Reference Services Head Name Role Phone Nataly Page NP Primary Care Provider [phone] Allergies No known active allergies Medications aspirin [...] Diagnosed Date Coronary artery disease invo lving [place] coronary artery of [place] heart without angina pectoris 11/19/2024 Social History Tobacco Use Types Packs/Day Years Used Date Smoking Tobacco: Never Smokeless Tobacco: Never Tobacco Cessation:Counseling Given: Not Answered Sex and Gender Information Value Date Recorded Sex Assigned at Not on file Legal Sex Male 9:53 AM EVENTS DIRECTOR Gender Identity Not on file Sexual Orientation [...] 172.7 cm (5' 8) 11/19/2024 9:18 AM EVENTS DIRECTOR Body Mass Index 29.19 11/19/2024 9:18 AM EVENTS DIRECTOR Plan of Treatment Not on file Insurance MEDICARE [facility] Care Teams Reference Services Head Relationship Specialty Start Date End Date Nataly Page NP [address] [facility] [place] [address] PCP - General Nurse Practitioner 10/11/24
== END 2025-04-10 10:27 | disposition home or self-care (01) ==
LOC: ANHSURGERY 10:32
PROVIDERS: PCP Nurse Practitioner; Visit Provider Urology
DX: E78.5 Hyperlipidemia, unspecified (principal); R94.31 Abnormal electrocardiogram [ECG] [EKG]
CPT/HCPCS: 93005

== ENCOUNTER 2025-04-17 00:25 | Day surgery (SDC) | payer MEDICARE, SELFPAY ==
[2025-04-09 15:27] VITALS: BMI 28.8
--- NOTE | 2025-04-09 15:58 | PC.NURSE ---
Report to the Outpatient Waiting Room, entrance under the green pavilion located off [facility], at time ___12:00PM___ on date ____04/17/25___. Planned Procedure Time: ___2:00PM____.? Time changes happen often and if your time is changed the preop area will call you the afternoon before. - You and your visitor will be asked to self-screen and do not enter if you have any COVID symptoms. Please call surgeon if you need to reschedule. - A mask is optional within the hospital at this time. Patients may have clear liquids (water, carbonated beverages, clear teas, apple juice) until 3 hours prior to surgery (11:00AM) with a maximum of 20 ounces. - No food from midnight until time of surgery and no smoking, or chewing tobacco (or any form of nicotine). No chewing gum, candy or mints. Take only the following medications with a SIP of water on the morning of surgery: NONE DO NOT STOP ANY OF YOUR OTHER PRESCRIPTION MEDICATIONS PRIOR TO SURGERY EXCEPT THE FOLLOWING Hold all vitamins and supplements for 3 days per anesthesiologist. Medications to discontinue per physician HOLD ASPIRIN 7 DAYS PRE-OP PER DR MYERS Date to take last dose 04/09/25 Please no make-up, nail upper sorbian, hairspray, perfume, deodorant, or body powder the day of surgery.? No jewelry (including any body piercings) or valuables the day of surgery, leave them at home.? Please take a shower or bath the night before, or the morning of, surgery with an antibacterial soap.? Wear comfortable, loose fitting clothing.? - Jewelry must be removed prior to entering the operating room.? Rings and piercings that are not removed may be cut off. - The hospital will not accept responsibility for valuables.? - Please leave all valuables, including medications, at home the day of surgery. If you are going home after surgery, a licensed tractor trailer driver must drive you home.? - NO public transportation without another adult if you receive anesthesia. - We recommend that an adult stay with you for 24 hours following discharge. - We also recommend that you do not drive, make important decision, drink alcoholic beverages, or take any drugs that were not prescribed by your health care provider for at least 24 hours after your discharge time. Follow any additional instructions given to you from your surgeon. Telephone instructions given to ____PATIENT and asked if any additional questions and then verbalized understanding. Patient advised to call surgeon office or pre surgery nurse liaison [phone] if any additional questions.
--- NOTE | ~2025-04-17 | XR_ITS ---
EXAMINATION: XR retrograde pyelogram RT DATE: 04/17/2025 14:40 CDT INDICATION: RIGHT STENT EXCHANGE . TECHNIQUE: 4 fluoroscopic images of the right abdomen and pelvis were obtained during right retrograd e pyelography with stent exchange. Fluoroscopy exposure time was 139 seconds. Air Kerma 43.55 mGy. DA P 1.95 mGym2. COMPARISON: 03/01/2025 FINDINGS/IMPRESSION: Fluoroscopic documentation of right retrograde pyelography with stent exchange. Please refer to the o perative note for complete procedural details. Reviewed, dictated and finalized at location K.
--- OUTSIDE RECORDS SUMMARY | 2025-04-17 00:27 | XMS_ITS | Referral Summary ---
Author Organization [address] Address [address] [place] [address] Care Team Providers Care Brand Analyst Name Role Phone Nataly Page NP Primary [...] of [place] heart without angina pectoris 11/19/2024 Social History Tobacco Use Types Packs/Day Years Used Date Smoking Tobacco: Never Smokeless Tobacco: Never Tobacco Cessation:Counseling Given: Not Answered Sex and Gender Information Value Date Recorded Sex Assigned at Not on file Legal Sex Male 9:53 AM CANTEEN ATTENDANT Gender Identity Not on file Sexual Orientation [...] 172.7 cm (5' 8) 11/19/2024 9:18 AM CANTEEN ATTENDANT Body Mass Index 29.19 11/19/2024 9:18 AM CANTEEN ATTENDANT Plan of Treatment Not on file Insurance MEDICARE [facility] Care Teams Brand Analyst Relationship Specialty Start Date End Date Nataly Page NP [address] [facility] [place] [address] PCP - General Nurse Practitioner 10/11/24
--- OUTSIDE RECORDS SUMMARY | 2025-04-17 00:27 | XMS_ITS | Continuity of Care Document ---
Author Organization [facility] Address [address] [facility] [address] [place] [address] Phone Care Team Providers Care Welfare Investigator Name Role Phone Deyanira Nolen MD Unavailable Unavailable Procedures Procedure Date CARDIOVASCULAR STRESS TEST CARDIOVASCULAR STRESS TEST Advance Directives Directive Yes / No Effective Date File Name No Information Encounters Encounter Description Practice Location Reason(s) For Visit Diagnoses Date Provider Providers Copied on Encounter [facility], [address], [place], [place], [id number], tel:[phone] [address] [place] [address] No Information Callum Mcmillan. [address], [place], [address], [place]. tel: [phone] Referring Provider: Octavio Martinez, [address], [place], [address]. tel:[phone] Family History Family Member Type Diagnosis Age At Onset No Information Payers Payer name Insurance type Covered democrat ID Khushi ferreira(s) [place] [id number] Social History Type Description Quantity Date Captured [...]
--- OUTSIDE RECORDS SUMMARY | 2025-04-17 00:27 | XMS_ITS | Clinical Summary ---
Author Organization [facility] Address [address] [place] [address] Care Team Providers Care Parts Counter Associate Name Role Phone RiaReynold nichols DO Primary Care Provider [phone] Social History Tobacco Use Types Packs/Day Years Used Date Smoking Tobacco: Never Assessed Sex and Gender Information Value Date Recorded Sex Assigned at Male 10/04/2024 2:56 PM FREIGHT INSPECTOR Legal Sex Male 12:24 PM FREIGHT INSPECTOR Gender Identity Not on file Sexual Orientation [...] complete this topic Insurance MEDICARE Care Teams Parts Counter Associate Relationship Specialty Start Date End Date Reynold Nettles DO [address] [place] [address] PCP - General 10/08/24
--- OUTSIDE RECORDS SUMMARY | 2025-04-17 00:27 | XMS_ITS | Clinical Summary ---
Author Organization [address] Address [address] [place] [address] Care Team Providers Care Liner Replacer Name Role Phone Nataly Page NP Primary [...] Diagnosed Date Coronary artery disease invo lving [place] coronary artery of [place] heart without angina pectoris 11/19/2024 Medical History [...] on file Legal Sex Male 9:53 AM DATA INTEGRITY SPECIALIST Gender Identity Not on file Sexual Orientation [...] 172.7 cm (5' 8) 11/19/2024 9:18 AM DATA INTEGRITY SPECIALIST Body Mass Index 29.19 11/19/2024 9:18 AM DATA INTEGRITY SPECIALIST Plan of Treatment Health Maintenance Due Date [...] 06/22/2023, 02/02/2023, Additional history exists Influenza Vaccine (#1) 2025 , 06/22/2023, 06/23/2022, Additional history exists Insurance MEDICARE [facility] Care Teams Liner Replacer Relationship Specialty Start Date End Date Nataly Page, GORGE [address] [place] [address] [place] [address] PCP - General Nurse Practitioner 10/11/24
[2025-04-17 11:56] VITALS: BMI 28.0
[2025-04-17 12:00] VITALS: BP 135/71; PULSE 66; TEMP 36.3; O2SAT 100
--- NOTE | 2025-04-17 12:45 | P.PNAN_ITS ---
Anes - Initial Pre Proc Eval Procedure: Operation Date: 04/17/25 14:00 Proposed Procedures p Cystoscopy, Right Ureteroscopy, Holmium Laser, Right Stone Extraction, Right Stent Exchange Versus Removal - Mac Jordan MD Date/Time: 04/17/25 12:45 Surgeon: Mac Jordan MD Pre Op Diagnosis: right ureteral stone Patient Data Age: 74 Gender: M Height: 1.73 m Weight: 83.7 kg Allergies Allergy/AdvReac Type Severity Reaction Status Date / Time No Known Allergies Allergy Verified 04/17/25 12:10 Home Medications ?Medication ?Instructions ?Recorded ?Confirmed ?Type atorvastatin 10 mg tablet (Lipitor) 10 mg PO QHS #90 tabs 10/10/24 04/17/25 Rx aspirin 81 mg tablet,delayed 81 mg PO QHS 03/01/25 04/17/25 History release cetirizine 10 mg capsule (Allergy 10 mg PO DAILY PRN allergy symptoms 04/09/25 04/17/25 History Relief (cetirizine)) Patient hx anesthesia problems: none Family hx anesthesia problems: none Results Review: All pre-operative results and documents have been reviewed as part of the pre- operative evaluation. [facility] Past Medical History Medical History Agatston coronary artery calcium score less than 100 score of 56 per patient report, started on statin and aspirin Kidney stones Hyperlipidemia Prediabetes History of stress test 3-4 years ago Seasonal allergies Surgical History Surgical History History of colonoscopy (01/30/25) internal hemorrhoids History of tooth extraction Family History Family History Father Acute myocardial infarction Mother Arthritis Social History Social History Social History: Surrogate medical decision maker: Sammi Victoria, spouse. Code status: Full code. Smoking status: Never smoker Second hand tobacco smoke exposure: No Alcohol intake: current Drinks per week: 4 Alcohol use details: wine, beer Substance use: never Substance use type: does not use Do You Feel Safe in your Home?: Yes Lack of Transportation: No Lack of Food: Never True Current Housing: I Have Housing Concerned About Future Housing: No Difficulty Paying Gas/Electric Bills: No Difficulty Paying for Meds: No Currently Unemployed: No Education: Master's Degree or Higher Difficulty w/ Childcare or Family Care: No Living arrangements: with family Additional living arrangements comments: Occupation/Education: retired Spiritual care concerns: No Agree to blood products: Yes Anes - Eval Final PreProcedure Day of Procedure 04/17/25 12:45 Patient weight: overweight Heart: regular rate and rhythm Lungs: clear to auscultation Airway: Mallampati scale class II Neurological: alert and oriented Last oral intake: >/= 8 hours ASA classification: II Emergent: no Anesthetic plan: proceed Anesthesia type and monitoring: general LMA and standard monitoring Results Review: All pre-operative results and documents have been reviewed as part of the pre- operative evaluation. Informed Consent: The patient's anesthetic plan and its attendant risks and benefits were discussed with the patient/family/POA. Questions were solicited and answers prov ided to the satisfaction of the patient/family/POA.
[2025-04-17] MEDS: LACTATED RINGERS 1,000 ML 30 ML IV CONT (12:50)
[2025-04-17] MEDS: ACETAMINOPHEN 500 MG TABLET 1000 MG PO (12:55)
--- NOTE | 2025-04-17 14:23 | WPDHPUPDATE1 ---
History and Physical Update Update Date/Time: 04/17/25 14:23 History and Physical has been reviewed, including an updated exam of the patient. There are NO changes in the patient's condition. Risks, benefits, and alternatives have been discussed and questions answered. Patient agrees to proceed with procedure.
[2025-04-17] MEDS: ceFAZolin 2 GM in SODIUM CHLORIDE 0.9% IV 50 ML 100 ML IVPB (14:40)
[2025-04-17] MEDS: LIDOCAINE 2% GEL UROJET 10 ML PKG MUCOUS MEM (15:03)
--- NOTE | 2025-04-17 15:13 | S_PTH ---
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
[2025-04-17 15:29] VITALS: BP 136/78; PULSE 62; RESP 12; TEMP 36.2; O2SAT 98
--- NOTE | 2025-04-17 15:38 | W.PM.PROC2 ---
Procedure Note - Detailed Date of Procedure 04/17/25 Pre-op Diagnosis right ureteral stone Post-op Diagnosis Same Procedure Performed Cystoscopy, right ureteroscopy, stone extraction, retrograde pyelogram, exchange Surgeon Mac Jordan MD Anesthesia General Findings --5mm right mid ureteral stone --bifid right collecting system with moderate hydronephrosis Description of Procedure Informed consent was obtained. Patient to recovery room. He was induced with anesthesia. She was prepped and draped in the sterile normal sterile fashion in the dorsal lithotomy position. A 22 F cystoscope was inserted through the urethra into the bladder. Within the bladder and identified Stensen right and left ureteral orifices. The right stent was grasped and pulled through meatus. We did advance a wire however it was encrusted therefore the stent was removed. We then advanced a wire and then an 810 coaxial dilator to achieve 2 wire access. Over the wire we advanced a flexible ureteral scope into the kidney we inspected each calyx and there was no stone identified. Retrograde pyelogram revealed moderate hydronephrosis of a bifid system. We then pulled the scope into the ureter and then in the mid ureter identified 5mm stone. The stone was then grasped with ZeroTip basket and removed. We then inspected the length of the ureter in each calyx again under fluoroscopic guidance there were no significant residual stone seen. Given the patient's hydronephrosis we elected to place a new stent. Over the wire a 6 F variable length stent with a curl in the lower pole encountered bladder was placed. The bladder was emptied. Lidocaine instilled. Patient was awakened taken recovery stable condition. Plan patient will follow-up in 1 week for ureteral stent removal. We will address large left stone burden at a later date likely with PCNL
[2025-04-17 15:45] VITALS: BP 127/82; PULSE 61; RESP 15; O2SAT 100
[2025-04-17 16:00] VITALS: BP 129/71; PULSE 61; RESP 12; O2SAT 97
[2025-04-17 16:10] VITALS: BP 132/55; PULSE 55
[2025-04-17 16:40] VITALS: BP 126/61; PULSE 58
== END 2025-04-17 17:00 | disposition home or self-care (01) ==
PROVIDERS: PCP Nurse Practitioner; Visit Provider Urology
PROC: (CPT 52352; principal; 2025-04-17 14:00)
DX: N20.1 Calculus of ureter (principal); N13.30 Unspecified hydronephrosis; E78.5 Hyperlipidemia, unspecified; R73.03 Prediabetes; Z79.82 Long term (current) use of aspirin; Z98.890 Other specified postprocedural states; Z82.49 Family history of ischemic heart disease and other diseases of the circulatory system
CPT/HCPCS: 52356; 74420; 82365; 88300; J0690; A9270; C1769; C2617; J1100; J2003; J2405; J2704; J3010; J7120; Q9966

== ENCOUNTER 2025-06-27 08:32 | Outpatient (CLI) | payer MEDICARE, SELFPAY | END 2025-06-27 08:33 | disposition home or self-care (01) | LOC: ANHAUDASC 08:34 | PROVIDERS: PCP Internal Medicine; Visit Provider Nurse Practitioner | DX: H90.3 Sensorineural hearing loss, bilateral (principal) | CPT/HCPCS: 92557; 92567 ==